=== PATIENT | male | born 1950 | race Caucasian/White ===

== ENCOUNTER 2019-01-11 15:15 | Outpatient (REF) | payer MEDICARE, OTHER, SELFPAY ==
[2019-01-11 20:13] LABS: Cholesterol 267 mg/dL (50-200); HDL Cholesterol 35 mg/dL (40-60); LDL CHOLESTEROL 201 mg/dL (<100); Triglyceride 168 mg/dL (30-150)
[2019-01-11 20:56] LABS: Magnesium 1.8 mg/dL (1.8-2.4)
[2019-01-13 10:56] LABS: Hepatitis C Ab w Rflx HCV PCR Negative (NEGAT)
== END 2019-01-11 15:35 ==
LOC: NCHCN 15:15
PROVIDERS: PCP Family Medicine; Visit Provider Family Medicine
DX: I10 Essential (primary) hypertension (principal); K21.9 Gastro-esophageal reflux disease without esophagitis; Z11.59 Encounter for screening for other viral diseases
CPT/HCPCS: 80061; 83721; 86803; 83735

== ENCOUNTER 2019-01-17 00:19 | Outpatient (CLI) | payer MEDICARE, OTHER, SELFPAY ==
--- NOTE | 2019-01-17 08:41 | DI.US_ITS ---
SYMPTOM/DIAGNOSIS: SCREENING, Z13.9, FORMER SMOKER AORTA ULTRASOUND: No priors for comparison. There is no evidence of an abdominal aortic aneurysm. Maximum diameter of the abdominal aorta is seen proximally and measures 2.8 cm. In the mid abdominal aorta, the measurements are 2.3 by 2.5 cm. The distal abdominal aortic measurements are 2 by 2.1 cm. The left iliac artery measures 1.5 by 1.4 cm. The right iliac artery measures 1.4 by 1.4 cm. IMPRESSION: No evidence of an abdominal aortic aneurysm.
== END 2019-01-17 00:39 ==
PROVIDERS: PCP Family Medicine; Visit Provider Family Medicine
DX: Z13.6 Encounter for screening for cardiovascular disorders (principal); Z87.891 Personal history of nicotine dependence
CPT/HCPCS: 76706

== ENCOUNTER 2019-02-15 17:54 | Outpatient (REF) | payer MEDICARE, OTHER, SELFPAY ==
[2019-02-15 20:01] LABS: Anion Gap 5.8 mmol/L (3-11); BUN 17 mg/dL (7-18); CO2 31.2 mmol/L (21.0-32.0); CREATININE 0.96 mg/dL (0.70-1.30); Calcium 9.5 mg/dL (8.5-10.1); Chloride 104 mmol/L (98-107); Glucose 110 mg/dL (70-100); Potassium 3.8 mmol/L (3.5-5.1); Sodium 141 mmol/L (136-145)
== END 2019-02-15 18:14 ==
LOC: NCHCN 17:54
PROVIDERS: PCP Family Medicine; Visit Provider Family Medicine
DX: I10 Essential (primary) hypertension (principal)
CPT/HCPCS: 80048

== ENCOUNTER 2020-06-04 00:08 | Outpatient (REF) | payer MEDICARE, OTHER, SELFPAY ==
[2020-06-04 18:54] LABS: Anion Gap 10.2 mmol/L (3-11); BUN 14 mg/dL (7-18); CO2 26.8 mmol/L (21.0-32.0); CREATININE 0.91 mg/dL (0.70-1.30); Calcium 9.6 mg/dL (8.5-10.1); Calculated LDL 108 mg/dL (<100); Chloride 104 mmol/L (98-107); Cholesterol 175 mg/dL (<200); Glucose 113 mg/dL (74-106); HDL Cholesterol 36 mg/dL (40-60); Potassium 3.6 mmol/L (3.5-5.1); Sodium 141 mmol/L (136-145); Triglyceride 159 mg/dL (<150)
== END 2020-06-04 00:28 ==
LOC: NCHCN 00:08
PROVIDERS: PCP Family Medicine; Visit Provider Family Medicine
DX: I10 Essential (primary) hypertension (principal); E78.5 Hyperlipidemia, unspecified
CPT/HCPCS: 80048; 80061

== ENCOUNTER 2021-03-13 21:44 | Outpatient (REF) | payer MEDICARE, OTHER, SELFPAY ==
[2021-03-13 18:18] LABS: Abs Immature Grans 0.02 10^3/uL (0.0-0.06); Absolute Basophil Count 0.06 10^3/uL (0.0-0.2); Absolute Eosinophil Count 0.24 10^3/uL (0.0-0.7); Absolute Lymphocyte Count 2.26 10^3/uL (1.2-3.4); Absolute Monocyte Count 0.56 10^3/uL (0.1-0.8); Absolute Neutrophil Count 4.79 10^3/uL (1.2-6.7); Basophils % 0.8; HCT 43.6 % (40.0-50.0); HGB 15.4 g/dL (13.5-17.5); Immature Grans % 0.3; Lymphocytes % 28.5; MCH 31.1 pg (27.0-33.0); MCHC 35.3 % (32.0-36.0); MCV 88.1 fL (80-95); Monocytes % 7.1; Neutrophils % 60.3; Nucleated RBC 0 %; Platelet Count 226 10^3/uL (130-400); RBC 4.95 10^6/uL (4.36-5.78); RDW 12.5 % (11.8-14.1); RDW-SD 40.4 fL; WBC 7.93 10^3/uL (4.4-10.8)
[2021-03-13 18:24] LABS: Anion Gap 7.6 mmol/L (3-11); BUN 14 mg/dL (7-18); CO2 28.4 mmol/L (21.0-32.0); Calcium 8.7 mg/dL (8.5-10.1); Chloride 104 mmol/L (98-107); Glucose 118 mg/dL (74-106); Potassium 3.3 mmol/L (3.5-5.1); Sodium 140 mmol/L (136-145)
[2021-03-13 18:32] LABS: Bilirubin Negative (Negative); Blood Trace-lysed (Negative); Clarity Clear (Clear); Glucose Negative (Negative); Ketones Negative (Negative); Leukocyte Esterase Negative (Negative); Nitrite Negative (Negative); Specific Gravity 1.025 (1.005-1.025); Urobilinogen 0.2 EU/dL (Up TO 0.2); pH 5.5 (5-8)
[2021-03-13 18:43] LABS: Bacteria Negative HPF (Negative); C & S Indicated? No; Casts Negative LPF (Negative); Crystals Negative HPF (Negative); Epithelial Cells Rare HPF (Negative); Mucus Negative (Negative); RBC 0-2 HPF (0-2); WBC 0-2 HPF (0-5)
[2021-03-15 15:03] LABS: COVID-19 RT-PCR UVMMC Result Negative (Negative)
== END 2021-03-13 21:45 | disposition home or self-care (01) ==
LOC: NCHCN 21:44
PROVIDERS: PCP Family Medicine; Visit Provider Nurse Practitioner Family
DX: R19.7 Diarrhea, unspecified (principal); R82.998 Other abnormal findings in urine
CPT/HCPCS: 80048; U0003; 81003; 81015; 85025

== ENCOUNTER 2021-03-18 11:14 | Outpatient (REF) | payer MEDICARE, SELFPAY ==
[2021-03-19 12:55] LABS: C Diff PCR Negative (Negative)
[2021-03-19 21:34] LABS: Campylobacter PCR Negative (Negative); Salmonella PCR Negative (Negative); Shiga Toxin PCR Negative (Negative); Shigella/Enteroinvasive Ecoli Negative (Negative)
== END 2021-03-18 11:15 | disposition home or self-care (01) ==
LOC: NCHCN 11:14
PROVIDERS: PCP Family Medicine; Visit Provider Family Medicine
DX: R19.7 Diarrhea, unspecified (principal)
CPT/HCPCS: 87493; 87505

== ENCOUNTER 2021-03-20 11:44 | Outpatient (REF) | payer MEDICARE, SELFPAY ==
[2021-03-20 13:33] LABS: BUN 20 mg/dL (7-18); CREATININE 1.1 mg/dL (0.70-1.30); Calcium 8.8 mg/dL (8.5-10.1); Chloride 105 mmol/L (98-107); Glucose 111 mg/dL (74-106); Potassium 3.5 mmol/L (3.5-5.1); Sodium 143 mmol/L (136-145)
== END 2021-03-20 11:45 | disposition home or self-care (01) ==
LOC: NCHCN 11:44
PROVIDERS: PCP Family Medicine; Visit Provider Physician Assistant Medical
DX: R19.7 Diarrhea, unspecified (principal)
CPT/HCPCS: 80048

== ENCOUNTER 2021-04-22 20:31 | Outpatient (REF) | payer MEDICARE, SELFPAY ==
[2021-04-24 15:28] LABS: COVID-19 RT-PCR UVMMC Result Negative (Negative)
== END 2021-04-22 20:32 | disposition home or self-care (01) ==
LOC: NCHCN 20:31
PROVIDERS: PCP Family Medicine; Visit Provider Family Medicine
DX: Z20.822 Contact with and (suspected) exposure to COVID-19 (principal); J06.9 Acute upper respiratory infection, unspecified
CPT/HCPCS: U0003

== ENCOUNTER 2022-05-14 09:29 | Outpatient (REF) | payer MEDICARE, OTHER, SELFPAY ==
--- NOTE | 2022-05-14 08:30 | SKI_PTH ---
PATIENT: Eddie Buitrago JR LOC: [facility] U#:[id number] AGE/SX: 71/M ROOM: RE05/14/[address]: Dmitriy Franco MD : 1950 BED: DIS: 05/14/2022 SPEC #: [id number] RECD: 05/14/22 16:53 STATUS: DAVEY REQ #: [id number] DAWSON: 05/14/22 08:[address]: Dmitriy Franco DEPT: Surgical Specimen RECD BY: Ananya Taylor ENTERED: 05/14/22 16:53 SP TYPE: JULES MARCUS DR: Manuel Hardin Tissues: 1 - SKIN BIOPSY(SHAVE/PUNCH) Procedures: SKIN LEVEL 4 Comments: [id number]
== END 2022-05-14 09:30 | disposition home or self-care (01) ==
LOC: LBN 09:29
PROVIDERS: PCP Family Medicine; Visit Provider Otolaryngology
DX: D22.39 Melanocytic nevi of other parts of face (principal)
CPT/HCPCS: 88305

== ENCOUNTER → 2022-05-20 01:25 | Outpatient (CLI) | payer MEDICARE, SELFPAY ==
--- NOTE | 2022-05-20 | DI.RAD_ITS ---
Exam(s) XR HIP RT COMPLETE AP PELVIS EXAM: XR HIP RT COMPLETE AP PELVIS CLINICAL HISTORY: RT HIP PAIN, M25.551. TECHNIQUE: 2D digital imaging was performed of the right hip. Three images were obtained. AP pelvis and lateral right hip views were obtained. COMPARISON: No exams were available for comparison FINDINGS: BONES: No acute fracture is present. No bony destructive lesion is seen. JOINTS: No dislocation present. Marked degenerative changes are seen in the right hip with joint spac e narrowing, subchondral sclerosis and periarticular spurring. Mild degenerative changes are seen in the left hip. Moderate degenerative changes are seen in the lower visualized lumbar spine. SOFT TISSUE: Normal. IMPRESSION: Marked osteoarthritis of the right hip. DATA REPOSITORY: RADIATION DOSE DELIVERED:
== END ==
PROVIDERS: PCP Family Medicine; Visit Provider Family Medicine
DX: M16.11 Unilateral primary osteoarthritis, right hip (principal)
CPT/HCPCS: 73502

== ENCOUNTER 2022-06-10 16:28 | Outpatient (REF) | payer MEDICARE, SELFPAY ==
[2022-06-10 15:01] LABS: Bilirubin Negative (Negative); Blood Trace-intact (Negative); Clarity Turbid (Clear); Glucose Negative (Negative); Ketones Negative (Negative); Leukocyte Esterase Trace (Negative); Nitrite Negative (Negative); Specific Gravity >= 1.030 (1.005-1.025); Urobilinogen 0.2 EU/dL (Up TO 0.2); pH 6.5 (5-8)
[2022-06-10 15:16] LABS: HCT 43.8 % (40.0-50.0); HGB 14.9 g/dL (13.5-17.5); MCH 30.5 pg (27.0-33.0); MCV 90 fL (80-95); MPV 9.6 fL (8.0-11.0); Platelet Count 193 10^3/uL (130-400); RBC 4.89 10^6/uL (4.36-5.78); RDW 13.2 % (11.8-14.1); RDW-SD 43.3 fL
[2022-06-10 15:58] LABS: ALT 38 U/L (16-63); AST 26 U/L (15-37); Albumin 3.8 g/dL (3.4-5.0); Alkaline Phosphatase 104 U/L (46-116); Anion Gap 12.8 mmol/L (3-11); BUN 20 mg/dL (7-18); Bilirubin, Total 0.6 mg/dL (0.2-1.0); CO2 26.2 mmol/L (21.0-32.0); Calcium 8.6 mg/dL (8.5-10.1); Calculated LDL 99 mg/dL (<100); Chloride 104 mmol/L (98-107); Cholesterol 157 mg/dL (<200); Epithelial Cells Negative HPF (Negative); Glucose 117 mg/dL (74-106); HDL Cholesterol 36 mg/dL (40-60); Mucus Negative (Negative); Potassium 4.1 mmol/L (3.5-5.1); RBC 0-2 HPF (0-2); Sodium 143 mmol/L (136-145); Total Protein 7.3 g/dL (6.4-8.2); Triglyceride 112 mg/dL (<150); WBC >50 HPF (0-5)
[2022-06-10 15:59] LABS: C & S Indicated? Yes; Crystals Many Amorphous HPF (Negative)
== END 2022-06-10 16:29 | disposition home or self-care (01) ==
LOC: NCHCN 16:28
PROVIDERS: PCP Family Medicine; Visit Provider Family Medicine
DX: I10 Essential (primary) hypertension (principal); E78.5 Hyperlipidemia, unspecified; R31.21 Asymptomatic microscopic hematuria
CPT/HCPCS: 80053; 80061; 85027; 81003; 81015; 87086

== ENCOUNTER → 2022-09-26 13:58 | Outpatient (CLI) | payer OTHER, SELFPAY ==
--- NOTE | 2022-09-26 | DI.RAD_ITS ---
Exam(s) XR HIP LT COMPLETE AP PELVIS EXAM: XR HIP LT COMPLETE AP PELVIS CLINICAL HISTORY: FALL. TECHNIQUE: 2D digital imaging was performed of the left hip. Two views were obtained. AP pelvis an d lateral left hip views were obtained. COMPARISON: CR XR HIP RT COMPLETE AP PELVIS from 05/20/2022 FINDINGS: BONES: No acute fracture is present. No bony destructive lesion is seen. JOINTS: No dislocation present. There are marked degenerative changes of the right hip. Mild degener ative changes are seen in the left hip. SOFT TISSUE: Normal. IMPRESSION: No acute fracture or dislocation. DATA REPOSITORY: RADIATION DOSE DELIVERED:
--- NOTE | 2022-09-26 | DI.RAD_ITS ---
Exam(s) XR RIBS LT W PA LAT CHEST EXAM: XR RIBS LT W PA LAT CHEST CLINICAL HISTORY: FALL TECHNIQUE: 2D digital imaging was performed. Four images are obtained. COMPARISON: No exams were available for comparison FINDINGS: MEDIASTINUM: Normal. HEART: Normal. PULMONARY VASCULATURE: Normal. LUNGS: Clear. PLEURAL SPACE: No pleural effusion or pneumothorax. BONE:Within normal limits for the patient's age. LEFT RIBS: Normal. OTHER FINDINGS:Normal. IMPRESSION: 1. No acute pulmonary findings. 2. Unremarkable left ribs. DATA REPOSITORY: RADIATION DOSE DELIVERED:
--- NOTE | 2022-09-26 14:41 | DI.VRAD_ITS ---
PROCEDURE INFORMATION: Exam: XR Left Hip Exam date and time: 09/26/2022 2:18 PM Age: 72 years old Clinical indication: Hip pain; Left hip TECHNIQUE: Imaging protocol: Radiologic exam of the Left hip. Views: 2 or 3 views hip with pelvis when performed. COMPARISON: No relevant prior studies available. FINDINGS: Bones/joints: Severe osteoarthritic changes, right worse than left. No acute fracture or dislocation. Soft tissues: Unremarkable. IMPRESSION: No acute findings. Dictated and Authenticated by: Kelly Lord MD. Ordering:BARRERA CARDENAS MD
--- NOTE | 2022-09-26 14:41 | DI.VRAD_ITS ---
PROCEDURE INFORMATION: Exam: XR Left Ribs Exam date and time: 09/26/2022 2:10 PM Age: 72 years old Clinical indication: Injury or trauma; Fall; Work related; Blunt trauma (contusions or hematomas); Rib area, left side TECHNIQUE: Imaging protocol: Radiologic exam of the Left ribs. Views: 2 views. COMPARISON: No relevant prior studies available. FINDINGS: Bones/joints: Normal. Soft tissues: Normal. IMPRESSION: No acute findings. PROCEDURE INFORMATION: Exam: XR Chest Exam date and time: 09/26/2022 2:10 PM Age: 72 years old Clinical indication: Injury or trauma; Fall; Work related; Blunt trauma (contusions or hematomas); Rib area, left side TECHNIQUE: Imaging protocol: Radiologic exam of the chest. Views: 2 views. COMPARISON: No relevant prior studies available. FINDINGS: Lungs: Unremarkable. No consolidation. Pleural spaces: Unremarkable. No pleural effusion. No pneumothorax. Heart/Mediastinum: Unremarkable. No cardiomegaly. Bones/joints: Unremarkable. IMPRESSION: No acute findings. Dictated and Authenticated by: Kelly Lord MD. Ordering:BARRERA CARDENAS MD
== END ==
PROVIDERS: PCP Family Medicine; Visit Provider Nurse Practitioner Family
DX: M16.12 Unilateral primary osteoarthritis, left hip (principal); W19.XXXA Unspecified fall, initial encounter
CPT/HCPCS: 71046; 71100; 73502

== ENCOUNTER 2023-01-21 23:42 | Emergency (ER) | payer OTHER, SELFPAY ==
[2023-01-21 23:51] VITALS: BP 136/99; PULSE 100; RESP 20; TEMP 36.7; O2SAT 99
--- NOTE | 2023-01-22 | DI.RAD_ITS ---
Exam(s) XR FOOT LT COMPLETE EXAM: XR FOOT LT COMPLETE CLINICAL HISTORY: jammed foot into bench, pain 1st/2nd toes, r/o fx. TECHNIQUE: 2D digital imaging was performed. Three views. COMPARISON: No exams were available for comparison FINDINGS: BONES: No acute fracture is present. No bony destructive lesion is seen. Postsurgical changes of the proximal phalanx of the great toe with resection of the proximal portion. Mild postsurgical deformi ty of the 1st metatarsal head. JOINTS: No dislocation present. SOFT TISSUE: Dorsal swelling. IMPRESSION: Postsurgical changes of 1st toe. No acute fracture. DATA REPOSITORY: RADIATION DOSE DELIVERED:
--- NOTE | 2023-01-22 00:47 | DI.VRAD_ITS ---
PROCEDURE INFORMATION: Exam: XR Left Foot Exam date and time: 01/22/2023 12:20 AM Age: 72 years old Clinical indication: Pain; Foot; Left; Prior surgery; Surgery date: 6+ months; Surgery type: Bunion surgery; Additional info: Jammed foot into bench, pain 1st/2nd toes, R/O FX TECHNIQUE: Imaging protocol: Radiologic exam of the left foot. Views: 3 or more views. COMPARISON: CR LEFT KNEE 3 VIEW COMPLETE 08/30/2017 12:36 PM FINDINGS: Bones/joints: Postsurgical change of the 1st proximal phalanx. No acute fracture. Soft tissues: Normal. IMPRESSION: No acute finding. Dictated and Authenticated by: Solomon Cao MD. Ordering:INDIA Falcon MD
--- NOTE | 2023-01-22 02:45 | ED.GENADUL_ITS ---
Discharge Plan Disposition Patient Disposition: Home Condition: Stable Discharge Details Clinical Impression: Contusion of toe of left foot Primary Care Provider: Zeeshan Lowery ED Provider: Terrie Mims Home Meds and New Rx's Prescriptions: Continued amlodipine 5 mg tablet 5 mg PO DAILY atorvastatin 40 mg tablet 40 mg PO DAILY lisinopril-hydrochlorothiazide 20-12.5 mg tablet 1 tab PO DAILY Discharge Instructions Instructions: Foot Contusion (ED) Additional Instructions: Your x-ray today is reassuring and shows no evidence of acute fracture. Rest, ice, and elevate the affected area as much as possible. Follow-up with podiatry for reevaluation as needed. Return immediately to the emergency department if you develop any worsening or new concerning symptoms. Referrals: Laura Kamara DPM [[facility] STAFF PHYSICIAN] - Discharge Data Discharge Date/Time-TO BE ENTERED AT DEPARTURE: 01/22/23 02:53 Discharge Physician: Terrie Mims Medical Decision Making 72-year-old male presents with left first and second toe pain after jammed his foot into a bench at work. 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 Patient disposition delayed due to high volume and acuity in the department. His left foot appears normal to inspection with some pain with range of motion and tenderness in his left first and second toe. There is no deformity or evidence of cellulitis. Left foot x-ray negative for acute findings. Patient advised on importance of rest, ice and elevation. He was given podiatry follow- up information if needed. Usual and customary return precautions given prior to discharge. Medical Records Medical records reviewed: Yes I reviewed the patient's medical records. Imaging Data Radiologic Study: Radiologist's impression: XR Left Foot Exam date and time: 01/22/2023 12:20 AM Age: 72 years old Clinical indication: Pain; Foot; Left; Prior surgery; Surgery date: 6+ months; Surgery type: Bunion surgery; Additional info: Jammed foot into bench, pain 1st/2nd toes, R/O FX TECHNIQUE: Imaging protocol: Radiologic exam of the left foot. Views: 3 or more views. COMPARISON: CR LEFT KNEE 3 VIEW COMPLETE 08/30/2017 12:36 PM FINDINGS: Bones/joints: Postsurgical change of the 1st proximal phalanx. No acute fracture. Soft tissues: Normal. IMPRESSION: No acute finding. HPI General Mode of arrival: ambulatory . Date/Time Provider Initiated Documentation: 01/22/23 00:05 . Limitations to Documentation: no limitations . Information obtained by: patient . 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 Patient has not taken anything for pain. Patient denies any ankle pain. He denies any other injuries. Related Data Home Medications Medication Instructions Recorded Confirmed atorvastatin 40 mg tablet 40 mg PO DAILY 11/03/21 01/22/23 lisinopril 20 1 tab PO DAILY 11/03/21 01/22/23 mg-hydrochlorothiazide 12.5 mg tablet amlodipine 5 mg tablet 5 mg PO DAILY 05/14/22 01/22/23 Allergies Allergy/AdvReac Type Severity Reaction Status Date / Time Penicillins Allergy Unknown Verified 01/22/23 00:11 General Stated Complaint: Orthopedic BETY: 4 Review of Systems All systems reviewed & are unremarkable except as noted in HPI and below Constitutional Constitutional: Reports as per HPI, Denies chills and Denies fever(s) Eyes Eyes: Denies blurry vision ENT Ears, Nose, Mouth, and Throat: Denies dizziness, Denies sore throat and Denies throat swelling Cardiovascular Cardiovascular: Denies chest pain and Denies dyspnea Respiratory Respiratory: Denies cough and Denies dyspnea Gastrointestinal Gastrointestinal: Denies abdominal pain, Denies diarrhea and Denies vomiting Genitourinary Genitourinary: Denies hematuria and Denies dysuria Musculoskeletal Musculoskeletal: Denies back pain and Denies numbness Comments: Left first and second toe pain. Integumentary/Breasts Skin/Breast: Denies lesions and Denies rash Neurologic Neurologic: Denies dizziness, Denies localized weakness and Denies numbness Allergic/Immunologic Allergic/Immunologic: Denies throat swelling [facility] All Active Problems (Updated 01/22/23 @ 02:45 by Terrie Mims DO) Contusion of toe of left foot (Acute) Dry throat (Acute) Cough (Acute) Skin lesion of face (Acute) Bilateral impacted cerumen (Acute) Sensorineural hearing loss, bilateral (Acute 05/10/14) Impacted cerumen (Acute 05/10/14) Hematoma of pinna (Acute 12/07/13) Conductive hearing loss, external ear (Acute 05/10/14) Medical History Compound nevus of cheek COVID-19 GERD (gastroesophageal reflux disease) Hypercholesterolemia Hypertension Osteoarthritis Surgical History H/O knee surgery S/P repair of hydrocele Social History Smoking/Tobacco Use Status: Never Smoking risk assessment performed?: Yes What is your relationship status?: Panel score (0-1 are the most socially isolated patients): 0 Do you feel safe at home: Yes Do you feel safe in your relationship?: Yes Exam Const General: cooperative, healthy appearing and no acute distress HENMT Head: normal to inspection Mouth: oral mucosae normal Eyes General: appearance normal, both eyes and all related structures Neck Neck: normal visual inspection Resp Effort & Inspection: normal respiratory effort and able to speak in complete sentences Cardio Rate: regular rate Skin General skin exam: no rashes or lesions noted Neuro General: patient alert, patient awake and patient oriented x3 Motor: muscle tone normal throughout Extrem Other: Left first and second toe without ecchymosis, erythema or deformity. He has some pain with range of motion and tenderness of the left first and second toe. Remainder of foot nontender to palpation. Left ankle appears normal to inspection without tenderness. Left DP and PT pulses intact. Psych Appearance: grossly normal Affect: normal affect Course Vital Signs Vital signs: Vital Signs Temperature 98.1 F 01/21/23 23:51 Pulse 100 H 01/21/23 23:51 Respiratory Rate 20 01/21/23 23:51 Blood Pressure 136/99 H 01/21/23 23:51 Pulse Oximetry 99 01/21/23 23:51 Temperature 98.1 F 01/21/23 23:51 Temperature Source Temporal Artery Scan 01/21/23 23:51 Pulse 100 H 01/21/23 23:51 Respiratory Rate 20 01/21/23 23:51 Respiratory Effort Normal 01/22/23 00:04 Blood Pressure 136/99 H 01/21/23 23:51 Blood Pressure Position Sitting 01/21/23 23:51 Pulse Oximetry 99 01/21/23 23:51 Oxygen Delivery Method Room Air 01/21/23 23:51 Oxygen Flow Rate 0 01/21/23 23:51 Pain Level 4 01/22/23 00:04
[2023-01-22 02:51] VITALS: BP 139/81; PULSE 78; RESP 18; O2SAT 95
== END 2023-01-22 02:53 | disposition home or self-care (01) ==
PROVIDERS: Emergency Provider Physician Assistant; PCP Family Medicine
DX: S90.32XA Contusion of left foot, initial encounter (principal); W23.0XXA Caught, crushed, jammed, or pinched between moving objects, initial encounter; Y99.0 Civilian activity done for income or pay
CPT/HCPCS: 99283; 73630

== ENCOUNTER 2023-06-28 12:03 | Outpatient (REF) | payer MEDICARE, SELFPAY ==
[2023-06-28 15:29] LABS: HCT 47.2 % (40.0-50.0); HGB 16.7 g/dL (13.5-17.5); MCH 30.8 pg (27.0-33.0); MCHC 35.4 % (32.0-36.0); MCV 87 fL (80-95); MPV 9.6 fL (8.0-11.0); Platelet Count 154 10^3/uL (130-400); RBC 5.43 10^6/uL (4.36-5.78); RDW 13.1 % (11.8-14.1); RDW-SD 41.5 fL; WBC 4.46 10^3/uL (4.4-10.8)
[2023-06-29 09:54] LABS: Lyme Ab w Rflx to Lyme Confirm Negative (Negative)
[2023-07-01 14:18] LABS: Anaplasma phagocytophilum Negative (Negative); B. miyamotoi PCR Negative (Negative); Babesia divergens/MO-1 Negative (Negative); Babesia duncani Negative (Negative); Babesia microti Negative (Negative); Ehrlichia chaffeensis Negative (Negative); Ehrlichia ewingii/canis Negative (Negative); Ehrlichia muris eauclairensis Negative (Negative)
== END 2023-06-28 12:04 | disposition home or self-care (01) ==
LOC: NCHCN 12:03
PROVIDERS: PCP Family Medicine; Visit Provider Family Medicine
DX: R50.9 Fever, unspecified (principal); R82.998 Other abnormal findings in urine; Z11.8 Encounter for screening for other infectious and parasitic diseases
CPT/HCPCS: 85027; 87798; 86618; 87086

== ENCOUNTER 2023-07-23 13:48 | Outpatient (REF) | payer MEDICARE, SELFPAY ==
[2023-07-23 15:08] LABS: Source Nasal/Nares
[2023-07-23 16:34] LABS: COVID-19 PCR POSITIVE (Negative)
== END 2023-07-23 13:49 | disposition home or self-care (01) ==
LOC: LBN 13:48
PROVIDERS: PCP Family Medicine; Visit Provider Physician Assistant Medical
DX: B34.9 Viral infection, unspecified (principal); Z20.822 Contact with and (suspected) exposure to COVID-19
CPT/HCPCS: 87635; 87070

== ENCOUNTER 2023-08-05 13:56 | Outpatient (CLI) | payer MEDICARE, SELFPAY ==
--- NOTE | 2023-08-05 08:44 | DI.RAD_ITS ---
Exam(s) XR HIP RT COMPLETE AP PELVIS EXAM: XR HIP RT COMPLETE AP PELVIS CLINICAL HISTORY: RIGHT HIP PAIN. TECHNIQUE: 2D digital imaging was performed of the right hip. Two images were obtained. AP pelvis a nd lateral right hip views were obtained. COMPARISON: CR XR HIP RT COMPLETE AP PELVIS from 05/20/2022 FINDINGS: BONES: No acute fracture is present. No bony destructive lesion is seen. JOINTS: No dislocation present. There are marked degenerative changes of the right hip with joint spa ce narrowing and osteophytes. Subchondral sclerosis and cysts are also noted. Joint space narrowing is also seen in the left hip. SOFT TISSUE: Normal. IMPRESSION: Marked degenerative changes of the right hip. DATA REPOSITORY: RADIATION DOSE DELIVERED:
== END 2023-08-05 13:57 | disposition home or self-care (01) ==
LOC: DIORS 13:56
PROVIDERS: PCP Family Medicine; Referring Provider Physical Therapist; Visit Provider Student in an Organized Health Care Education/Training Program
DX: M16.11 Unilateral primary osteoarthritis, right hip (principal); M16.12 Unilateral primary osteoarthritis, left hip
CPT/HCPCS: 99214; 73502

== ENCOUNTER 2023-09-09 16:22 | Outpatient (REF) | payer MEDICARE, SELFPAY ==
[2023-09-09 15:33] LABS: HCT 44.9 % (40.0-50.0); MCH 29.9 pg (27.0-33.0); MCHC 33.4 % (32.0-36.0); MCV 90 fL (80-95); MPV 9.4 fL (8.0-11.0); Platelet Count 227 10^3/uL (130-400); RBC 5.01 10^6/uL (4.36-5.78); RDW 13.3 % (11.8-14.1); RDW-SD 43.7 fL; WBC 6.74 10^3/uL (4.4-10.8)
[2023-09-09 15:55] LABS: ALT 37 U/L (16-63); AST 29 U/L (15-37); Alkaline Phosphatase 104 U/L (46-116); Anion Gap 9.7 mmol/L (3-11); BUN 14 mg/dL (7-18); Bilirubin, Total 0.4 mg/dL (0.2-1.0); CO2 26.3 mmol/L (21.0-32.0); CREATININE 0.9 mg/dL (0.70-1.30); Calcium 9.6 mg/dL (8.5-10.1); Chloride 103 mmol/L (98-107); Estimated GFR 90.18 (mL/min/1.73m2); Glucose 129 mg/dL (74-106); Potassium 3.9 mmol/L (3.5-5.1); Sodium 139 mmol/L (136-145); Total Protein 7.7 g/dL (6.4-8.2)
== END 2023-09-09 16:23 | disposition home or self-care (01) ==
LOC: NCHCN 16:22
PROVIDERS: PCP Family Medicine; Visit Provider Family Medicine
DX: I10 Essential (primary) hypertension (principal); M16.11 Unilateral primary osteoarthritis, right hip
CPT/HCPCS: 80053; 85027

== ENCOUNTER 2023-09-16 04:48 | Outpatient (CLI) | payer MEDICARE, SELFPAY ==
[2023-09-16 10:56] LABS: HCT 44.9 % (40.0-50.0); HGB 15.6 g/dL (13.5-17.5); MCH 30.9 pg (27.0-33.0); MCHC 34.7 % (32.0-36.0); MCV 89 fL (80-95); MPV 9.1 fL (8.0-11.0); Platelet Count 200 10^3/uL (130-400); RBC 5.05 10^6/uL (4.36-5.78); RDW 13.1 % (11.8-14.1); RDW-SD 42.6 fL; WBC 6.62 10^3/uL (4.4-10.8)
[2023-09-16 11:20] LABS: Anion Gap 8.7 mmol/L (3-11); BUN 14 mg/dL (7-18); CO2 29.3 mmol/L (21.0-32.0); Calcium 9.4 mg/dL (8.5-10.1); Chloride 102 mmol/L (98-107); Estimated GFR 79.47 (mL/min/1.73m2); Glucose 125 mg/dL (74-106); Potassium 3.8 mmol/L (3.5-5.1); Sodium 140 mmol/L (136-145)
== END 2023-09-16 04:49 | disposition home or self-care (01) ==
LOC: LBO 04:48
PROVIDERS: PCP Family Medicine; Visit Provider Student in an Organized Health Care Education/Training Program
DX: M16.11 Unilateral primary osteoarthritis, right hip (principal); Z01.818 Encounter for other preprocedural examination
CPT/HCPCS: 36415; 80048; 85027

== ENCOUNTER 2023-09-28 08:20 | Day surgery (SDC) | payer MEDICARE, SELFPAY ==
[2023-09-28] VITALS (9 sets, daily range): BP systolic 105–154; BP diastolic 67–95; PULSE 66–98; RESP 15–21; TEMP 36.1–36.6; O2SAT 92–99; BMI 29.3
[2023-09-28] MEDS: Celecoxib 200 MG CAP 400 MG PO (09:05)
[2023-09-28] MEDS: Acetaminophen 500 MG TAB 1000 MG PO (09:05)
--- NOTE | 2023-09-28 09:43 | ANES.PREOP_ITS ---
General Info Date of Service Date Performed: 09/28/23 Height: 5 ft 5 in Weight: 80.1 kg Body Mass Index (BMI): 29.3 Surgical Procedure: Operation Date: 09/28/23 11:35 Proposed Procedure Side Surgeon p Hip Total Hip Anterior, ACTIS High Right Kenyon Hall MD Meds Allergies and Home Medications Allergies Allergy/AdvReac Type Severity Reaction Status Date / Time Penicillins Allergy Unknown Verified 09/28/23 08:52 Home Medication Medication Instructions Recorded atorvastatin 40 mg tablet 40 mg PO DAILY 11/03/21 lisinopril 20 1 tab PO DAILY 11/03/21 mg-hydrochlorothiazide 12.5 mg tablet amlodipine 5 mg tablet 5 mg PO DAILY 05/14/22 Current Visit Medications: Current Medications Generic Name Dose Route Start Last Admin Trade Name Freq PRN Reason Stop Dose Admin Acetaminophen 1,000 mg 09/28/23 06:00 09/28/23 09:05 Acetaminophen 500 Mg Tab PO 09/28/23 16:00 1,000 mg PREOP JUAN Administration Celecoxib 400 mg 09/28/23 06:00 09/28/23 09:05 Celecoxib 200 Mg Cap PO 09/28/23 16:00 400 mg PREOP JUAN Administration Tranexamic Acid 1,000 mg/ 60 mls @ 360 mls/hr 09/28/23 06:00 Sodium Chloride IV 09/28/23 16:00 PREOP JUAN Ringer's Solution 1,000 mls @ 80 mls/hr 09/28/23 06:00 09/28/23 09:29 IV 10/27/23 23:59 80 mls/hr INFUSION JUAN Administration Cefazolin Sodium/Dextrose 2 gm in 50 mls @ 100 mls/hr 09/28/23 06:00 Ancef Duplex IVPB 10/27/23 23:59 PREOP JUAN IV Miscellaneous Supplies 1 each 09/28/23 06:00 Iv Access IV 10/27/23 23:59 DIRECTED JUAN Sodium Chloride 0 ml 09/28/23 06:00 Normal Saline Flush 10 Ml Syr IV 10/27/23 23:59 PRN PRN Sodium Chloride 0 ml 09/28/23 06:00 Normal Saline 10 Ml Vial IJ 10/27/23 23:59 DIRECTED PRN Sterile Water 0 ml 09/28/23 06:00 Water,Injection,Sterile 10 Ml Vial IJ 10/27/23 23:59 DIRECTED PRN PFSH Active Problems Active Problems: Problem Status Onset Code Degenerative joint disease of left hip M16.12 Degenerative joint disease of right hip M16.11 Dry throat J39.2 Skin lesion of face L98.9 Bilateral impacted cerumen H61.23 Sensorineural hearing loss, bilateral 05/10/14 H90.3 Impacted cerumen 05/10/14 H61.20 Hematoma of pinna 12/07/13 S00.439A Conductive hearing loss, external ear 05/10/14 H90.2 Medical History Medical History Compound nevus of cheek COVID-19 GERD (gastroesophageal reflux disease) Osteoarthritis Hypercholesterolemia Hypertension Surgical History Surgical History History of bunionectomy of right great toe History of bunionectomy of left great toe S/P repair of hydrocele H/O knee surgery Left knee - chainsaw injury Tobacco Smoking/Tobacco Use Status: Former Tobacco Use Alcohol Alcohol Intake: current Alcohol intake frequency: holidays/special occasions only Substance Use Substance use: Never Substance use type: does not use Vital Signs and Lab Results Vital Signs Most Recent Vital Signs in EMR: Most Recent Vital Signs Temp Pulse Resp BP Pulse Ox 36.6 C 98 H 20 154/95 H 96 09/28/23 08:43 09/28/23 08:43 09/28/23 08:43 09/28/23 08:43 09/28/23 08:43 Lab Results Blood Type / Crossmatch: No Data to Display Complete Blood Count: White Blood Count 6.62 10^3/uL (4.4-10.8) 09/16/23 10:45 Red Blood Count 5.05 10^6/uL (4.36-5.78) 09/16/23 10:45 Hemoglobin 15.6 g/dL (13.5-17.5) 09/16/23 10:45 Hematocrit 44.9 % (40.0-50.0) 09/16/23 10:45 Platelet Count 200 10^3/uL (130-400) 09/16/23 10:45 Complete Metabolic Panel: Sodium 140 mmol/L (136-145) 09/16/23 10:45 Potassium 3.8 mmol/L (3.5-5.1) 09/16/23 10:45 Chloride 102 mmol/L (98-107) 09/16/23 10:45 Carbon Dioxide 29.3 mmol/L (21.0-32.0) 09/16/23 10:45 BUN 14 mg/dL (7-18) 09/16/23 10:45 Creatinine 1.0 mg/dL (0.70-1.30) 09/16/23 10:45 Est GFR (CKD-EPI 2020) 79.47 (mL/min/1.73m2) 09/16/23 10:45 Calcium 9.4 mg/dL (8.5-10.1) 09/16/23 10:45 Albumin 4.0 g/dL (3.4-5.0) 09/09/23 10:55 Glucose 125 mg/dL (74-106) H 09/16/23 10:45 Liver Function Panel: Alanine Aminotransferase (ALT/SGPT) 37 U/L (16-63) 09/09/23 10: 55 Aspartate Amino Transf (AST/SGOT) 29 U/L (15-37) 09/09/23 10:55 Coagulation Panel: No Data to Display Cardiac Panel: No Data to Display Arterial Blood Gas: No Data to Display Venous Blood Gas: No Data to Display Pancreas Panel: No Data to Display Thyroid Panel: No Data to Display Infectious Disease: No Data to Display Blood Cultures: No Data to Display Toxicology Panel: No Data to Display Anesthesia Assessment and Plan Anesthesia History Personal History: No History of Anesthesia Complications Family History: No Family History of Anesthesia Complications Exercise Tolerance Exercise Tolerance: Metabolic Equivalents>4 Cardiac & Pulmonary Exam Cardiac Exam: Normal S1/S2 Heart Sounds Pulmonary Exam: Clear Bilateral Breath Sounds Implantable Cardiac Device Does patient have a Pacemaker or an ICD?: No Airway Exam Known Difficult Airway: No Mallampati Class: 4 Mouth Opening: Normal (> 3cm) Thyromental Distance: Greater than 3 cm Neck Range of Motion: Limited ROM Neck Circumference: Normal Teeth Condition: Normal Dentition Airway Comments: chips on the fronts. ASA Classification ASA Score: ASA 2 Emergency Case?: No NPO Status NPO Status: NPO Clears >2 hours, Solids >8 hours Anesthesia Plan Resuscitation Status: Full Code Anesthesia Technique: General Anesthesia Airway Planned: Endotracheal Tube Monitors Used: Standard Monitors Preoperative Comments:: 73 yo male for JERRI. Sig PMHx: HTN (3 agents, BP 140/80ish most appointments), occ GERD, former smoker, occ EtOH. Discussed risks and benefits of spinal vs GA but that the decision is ultimately his. He would like GA.
[2023-09-28] MEDS: Lactated Ringers 1,000 ML 80 ML IV (09:50)
--- NOTE | 2023-09-28 10:19 | W.PM.DS.N ---
Date of service: 09/28/23 Time of Service: 10:22 DS: Diagnosis Discharge Diagnosis (1) Degenerative joint disease of right hip: Status: Resolved Discharge Plan Disposition Patient Disposition: Home Condition: Good Discharge Details Reason For Visit: Right hip DJD Attending Provider: Kenyon Hall Primary Care Provider: Zeeshan Lowery Home Meds and New Rx's Prescriptions: New acetaminophen 500 mg tablet 1,000 mg PO Q8H PRN Qty: 90 0RF Rx Instructions: Take two tablets up to every 8 hours as needed for pain aspirin 81 mg tablet,delayed release (DR/EC) 81 mg PO BID 30 Days Qty: 60 0RF celecoxib [Celebrex] 200 mg capsule 200 mg PO BID PRNQty: 60 0RF Rx Instructions: Take one tablet twice daily for pain and inflammation docusate sodium [Colace] 100 mg capsule 100 mg PO BID Qty: 30 0RF pantoprazole 40 mg tablet,delayed release (DR/EC) 40 mg PO DAILY 14 Days Qty: 14 0RF dexamethasone 4 mg tablet 4 mg PO DAILY Qty: 2 0RF Rx Instructions: Take one tablet once daily for two days oxycodone 5 mg tablet 5 mg PO Q6H PRNQty: 12 0RF Rx Instructions: Take one tablet up to every 6 hours as needed for severe postoperative pain Continued amlodipine 5 mg tablet 5 mg PO DAILY atorvastatin 40 mg tablet 40 mg PO DAILY lisinopril-hydrochlorothiazide 20-12.5 mg tablet 1 tab PO DAILY Discharge Instructions Additional Instructions: Total Hip Discharge Instructions Activity: The most important activity is to walk. You should try to take short walks a few times a day. You have no restrictions on movement or positioning, but do not try to force what you do. You will find some stiffness and weakness with hip flexion (lifting your knee). Do not try to strengthen this too early, continue to practice walking and stairs and this will come. - Outpatient physical therapy can be helpful to help return you to a normal gait and improve your flexibility and strength. This can start around 2 weeks. For some patients, it?s not necessary. Usually this is determined at the time of discharge or at the first post-operative visit. - You should wear the KANE hose on both legs for 2 weeks. Dressing: Keep the surgical dressing in place for at least one week. After the first week it may be removed and replace with light gauze and tape or nothing. It may get wet after 3 days but avoid soaking the dressing. If it gets wet, just lightly pat dry. It is important to always keep some gauze between skin folds, especially when you are sitting. Spend some time with the wound exposed when you are lying flat as the incision does wrinkle onto itself. Medications: - You should take Tylenol and an anti-inflammatory Celebrex as your primary pain control medications. If the Celebrex is too expensive or not covered, please call the office for another alternative (Advil/Ibuprofen or Naproxen/Aleve). - You have been prescribed a stronger pain medication Oxycodone for breakthrough pain, take as needed as prescribed. - You have also been prescribed a stomach acid reduction agent Pantoprozole to help reduce stomach acid and reflux. - You have also been prescribed Decadron to help with post-operative nausea and pain. You will take this for two days starting tomorrow. - You will be taking Aspirin 81mg twice a day for DVT prevention unless instructed otherwise. - If you have constipation you should take Colace (which has been prescribed) or Miralax (which is available [id number]). It takes most people 3-4 days to have a bowel movement. Follow-up: 2 weeks If you have any acute concerns or questions, please do not hesitate to contact the office at [phone]. You may contact Dr. Hall with any questions after hours through the hospital at [phone] or on his cell phone at [phone]. Stand Alone Forms: Anesthesia Discharge InstLeticia Ochoa (Miguel) Referrals: Kenyon Hall MD [ [facility]FF PHYSICIAN] - 10/11/23 9:45 am Equipment/Supplies: Walker Activity:: Elevate Remove Dressings/Wound Care:: Do Not Remove Shower/Bathe:: 72 hours and Cover Diet:: As Tolerated Discharge Orders Discharge Orders: Discharge Order (Routine); Ordered 09/28/23 Ordered By: Marcelle Delcid Discharge Data Discharge Date/Time-TO BE ENTERED AT DEPARTURE: 09/28/23 16:00 Discharge Comment: pt d/c from [facility] DS: Summary Time Spent with Patient providing and/or coordinating discharge services: Less than 30 minutes Status at Discharge Functional status at discharge: uses cane/walker Overall status at discharge: patient is progressing back to baseline Mental Status: mental status grossly normal Speech and Movement: speech and movement normal Mood: congruent mood Affect: normal affect Exam Psych Mental Status: mental status grossly normal Speech and Movement: speech and movement normal Mood: congruent mood Affect: normal affect DS: Data Vitals/I&O Vitals and I&O: Vital Signs Temperature 97.9 F 09/28/23 08:43 Pulse 98 H 09/28/23 08:43 Pulse Rhythm Regular 09/28/23 08:43 Respiratory Rate 20 09/28/23 08:43 Respiratory Depth Normal 09/28/23 08:43 Blood Pressure 154/95 H 09/28/23 08:43 Pulse Oximetry 96 09/28/23 08:43 Oxygen Delivery Method Room Air 09/28/23 08:43 Oxygen Flow Rate 0 09/28/23 08:43 Intake & Output 09/27/23 09/27/23 09/28/23 11:59 23:59 11:59 Weight 180 lb 0.013 oz 176 lb 9.444 oz PFSH All Active Problems (Updated 09/29/23 @ 08:43 by Mu Chaparro RN) History of total right hip replacement (Acute 09/28/23) 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) Dry throat (Acute) Skin lesion of face (Acute) Bilateral impacted cerumen (Acute) Sensorineural hearing loss, bilateral (Acute 05/10/14) Impacted cerumen (Acute 05/10/14) Hematoma of pinna (Acute 12/07/13) Conductive hearing loss, external ear (Acute 05/10/14) Medical History (Updated 09/29/23 @ 08:43 by Mu Chaparro RN) Compound nevus of cheek COVID-19 GERD (gastroesophageal reflux disease) Osteoarthritis Hypercholesterolemia Hypertension Surgical History (Updated 09/29/23 @ 08:43 by Mu Chaparro RN) History of bunionectomy of right great toe History of bunionectomy of left great toe S/P repair of hydrocele H/O knee surgery Left knee - chainsaw injury Social History Smoking/Tobacco Use Status: Former Tobacco Use Quit Date: 11/29/74 Smoking risk assessment performed?: Yes Alcohol Intake: current Alcohol Intake frequency: holidays/special occasions only Drug use: Never Substance use type: does not use Housing: house What is your relationship status?: Panel score (0-1 are the most socially isolated patients): 0 Do you feel safe at home: Yes (lives alone) Do you feel safe in your relationship?: Yes Time Spent with Patient Time Spent with Patient: <45 minutes Time was spent: obtaining and/or reviewing separately otained hiistory, ordering medications,tests, procedures and referring, communicating with other health long term care social worker
[2023-09-28] MEDS: ceFAZolin 2 GM/50 ML BAG IVPB (10:37)
--- NOTE | 2023-09-28 12:01 | DI.RAD_ITS ---
Exam(s) XR HIP RT IN OR EXAM: XR HIP RT IN OR CLINICAL HISTORY: Degenerative joint disease of right hip. TECHNIQUE: 2D and realtime digital imaging was performed. COMPARISON: CR XR HIP RT COMPLETE AP PELVIS from 08/05/2023 FINDINGS: A hard copy image shows placement of a right hip prosthesis. The alignment appears satisfactory. Please see procedure note for details. Fluoro time: 28.6seconds RADIATION DOSE DELIVERED: Ubaldor=3.91 mGy
--- NOTE | 2023-09-28 12:13 | ROE_ITS ---
Date of service: 09/28/23 Time of Service: 11:00 Operative Note Operative Note DATE OF PROCEDURE: 09/28/23 PRE-OP DIAGNOSIS: Right Hip Osteoarthritis POST-OP DIAGNOSIS: same PROCEDURE: Right Anterior Total Hip Arthroplasty with Intraoperative Navigation SURGEON: Kenyon Hall ASSEMBLY DETAILER: Marcelle Delcid ANESTHESIA TYPE: Spinal Refer to Anesthesia Record ESTIMATED BLOOD LOSS: 200 PATHOLOGY: none sent TOURNIQUET TIME: 0 COMPLICATIONS: None Patient was transported to: PACU Patient's condition: stable Implants: 1. Depuy Villard Acetabular Component, 52mm 2. Depuy Acetabular Liner, [id number] 3. Depuy Actis High Offset Collared Femoral Stem, Size 4 4. Depuy Altrx Ceramic Femoral Head, Size 36+5mm Indications: I have seen Eddie in clinic for symptoms of hip arthritis, confirmed with radiographic findings. Eddie has exhausted nonoperative methods and was having significant limitations in daily function and desired better function and less pain. I discussed the technical details of a hip replacement. I explained the risks of the procedure to include, but not limited to, bleeding, infection, pain, stiffness, fracture, damage to nerves and vessels, damage to muscles and tendons, loosening, instability, leg length inequality, need for repeat procedure, blood clot and cardiopulmonary demise. Despite these risks, he elected to proceed. Findings: There was significant signs of arthritis throughout the hip. Procedure Description: Eddie was greeted in the preoperative holding area where the correct side was identified and marked. The consent was reviewed with the patient and signed. The history and physical was updated. All questions were answered. He was taken back to the operating room. A general anesthetic was then adminis tered. The feet were wrapped with cast padding and Coban and then placed into the boot liners and then into the boots. Care was taken to protect the skin and make sure the heels were fully down and the boots were stable. The patient was then positioned onto the HANA table. Both legs were held in a neutral position. SCDs were applied. The patient was then slid down onto a peroneal post. Prophylactic antibiotics in the form of Cefazolin were administered. 1g of Tranxemic Acid was given intravenously within 30 minutes of incision. The right leg was then prepped with Chloraprep and draped in a standard fashion. A second prep with Chloraprep was performed prior to placement of a shower-curtain type drape with Iodine impregnated skin protection. A timeout to confirm correct identity, side and site, procedure, allergies, anesthesia, and medical concerns was performed. An obliquely oriented incision was made starting lateral to the ASIS and running distal over the Tensor Fascia Nguyen (TFL) muscle belly toward the fibular head, approximately 10cm. The skin and soft tissue was dissected sharply, through Antoni?s fascia, and to the fascia of the TFL. With the fascia and superior border of the IT band identified, the fascia was incised with a new knife just above any perforators from the IT band. The TFL muscle belly was bluntly dissected away from the fascia and moved laterally. The fat between TFL and rectus was identified to ensure the dissection was not within the TFL. Blunt dissection created space between abductors and the capsule and retractor was placed over the lateral femoral neck. The fibers of the rectus femoris tendon were identified and these were freed from the anterior capsule. A second cobra retractor was placed around the medial femoral neck. The TFL was further retracted laterally to show the deep fascia. Careful dissection through this layer identified three main crossing vessels of the lateral femoral circumflex. These were cauterized in multiple locations and then cut without any noticeable bleeding. The TFL was further released bluntly from the deep fascia to expose anterior hip capsule and fat The Gregorio orthopaedic retractor was then placed beneath the TFL and against sartorius and medial soft tissues to protect and retract the soft tissues. A T-capsulotomy was then performed starting at the superior lateral acetabulum and moving distally to the intertrochanteric ridge. These capsular flaps were tagged with a No. 1 Ethibond and elevated from within. The capsular flaps were released to the shoulder of the lateral neck and to the lesser trochanter to give excellent visualization of the proximal femur. A neck osteotomy was performed using an oscillating saw based on preoperative templates. This cut started in the shoulder and of the lateral neck and exited medially. The saw was at all times directed medially to avoid injury to the greater trochanter. Gross traction was applied to the leg and the osteotomy opened. The femoral head was removed with a corkscrew, making sure to protect the TFL on its exit. Traction was released after head removal. This was measured on the back table to determine the starting reamer size. Portions of the rectus obscuring visualization were minimally elevated off the superior acetabulum. An anterior retractor was placed over the anterior wall between capsule and labrum and attached to the Gripper retraction system. The femur was rotated to 90 degrees and medial capsule was fully released until the lesser trochanter was palpable and visible; the femur was returned to 30 degrees. A posterior retractor was placed similarly between capsule and labrum. This provided excellent visualization. The contents of the cotyloid fossa were removed with electrocautery and the labrum was removed with a knife. There was a notable floor osteophyte. There was significant chondromalacia of the superior acetabulum. Acetabular reaming began with a 48mm reamer. This first reaming was directed anterior to posterior and medial to get down to the true floor. This was inspected and reamed until the true floor was reached. The anterior retractor was then released and entry and exit was provided by traction on the capsular flaps. I then reamed sequentially up to a 52mm reamer where good fit was obtained. The larger reamers were oriented based on anatomical reference of the anterior and lateral tesfaye to ensure proper abduction and anteversion. Positioning and size was confirmed with the fluoroscopy. A 52mm Depuy Villard acetabular component was selected. The acetabulum was reamed around the periphery with the selected acetabular size to prevent a rim fit. The deep tissues were irrigated. The acetabular component was then impacted in a position of about 40-45 degrees of abduction and 15-20 degrees of anteversion, using the patient?s anatomy as the ultimate landmark. Fluoroscopy was used to confirm this. There was excellent electric system operator of the acetabular component and the inserting handle was removed. The acetabular liner, Depuy [id number] polyethylene liner, was inserted and lined up with the tines of the acetabular component. There was no soft tissue interposition. The liner was then impacted into position and confirmed to be well-seated. A portion of the buck-articular cocktail was then injected around the acetabulum into the capsule and periosteum. This cocktail consisted of 123mg of Ropivacaine, 0.25mg of Epinephrine, 0.04mg of Clonidine, and 15mg of Ketorolac, diluted to 50cc. The leg was rotated to 120 degrees. Any remaining medial capsule was released until the lesser trochanter was easily palpable. A retractor was placed medially. The lateral capsule was further released into the shoulder to allow access to the greater trochanter. A Bradshaw retractor was placed over the greater trochanter which allowed the trochanter to flip in front of the capsule for excellent exposure. The leg was brought down into maximal extension and 20 degrees of adduction while ensuring there was no impingement on the acetabulum. Any remnant capsule within the trochanter was released. Piriformis and obturator externis were identified and protected. There was excellent access to the proximal femur. The lateral neck remnant was removed with a rongeur. A blunt canal probe was used to identify the canal and trajectory for later broaching. A box osteotome initiated the broach course. A small curved rasp and a curved curette were used to work laterally. Broaching then began with a starter Actis broach. This was inserted manually around the trochanter and into the canal before mallet blows. The broach was seated to a few millimeters below the cut level based on the neck cut and the preoperative template. Sequential broaching was continued with the [employer] pneumatic broaching device until a tight fit was obtained with good rotational control of the femur. A trial high offset neck was inserted along with a +5 trial head. The leg was brought out of extension and adduction and then reduced with traction and internal rotation. The leg was stable anteriorly in a position of 30 degrees of extension and 90 degrees of external rotation. Fluoroscopy was used to ensure there was no fracture and the stem was seated well. Leg lengths were checked with an AP pelvis and pelvic reference points. [employer] navigat ion system was used to confirm appropriate positioning and leg length and offset. Once content with the desired offset and leg lengths, the leg was brought back into extension, external rotation and adduction. The periosteum and surrounding tissue was injected with remaining portion of the buck-articular cocktail. The proximal femur was irrigated as well as the deep tissues. The RedKixuy Actis high offset collared stem, size 4, was then manually inserted into the proximal femur making sure to control rotation. It was then malleted into position with light blows, giving breaks to allow bone expansion and decrease risk of fracture. The selected Depuy Altrx Ceramic Head, size 36+5mm, was then placed onto the clean and dry trunnion and secured with impaction onto the tapered fit. The leg was brought back out of extension and adduction and reduced with traction and internal rotation. Stability was confirmed with no shuck at 90 degrees of external rotation and 30 degrees of extension. No impingement through range of motion arc. Final x-ray images were obtained with fluoroscopy to confirm adequate positioning and no intraoperative fracture. The deep tissues were thoroughly irrigated with Surgiphor, betadine solution. This was allowed to sit in the wound for 3 minutes before being thoroughly irrigated out with normal saline. The capsule was then reapproximated with the previously placed Ethibond sutures. The TFL fascia was finally closed with a No. 2 Stratafix, barbed suture. Deep tissues were then reapproximated with 0 Vicryl and a running 2-0 Vicryl. The skin was closed with a running 4-0 Monocryl in a subcuticular fashion. This was reinforced with skin glue. A Mepilex silver dressing was applied. At the end of the case, all counts were correct. Eddie was transferred to the hospital bed without difficulty and suffering no apparent complication. Eddie has a good prognosis. Physical therapy will start today and without restrictions, weight-bearing as tolerated. Aspirin 81mg BID will be used for DVT prophylaxis.
--- NOTE | 2023-09-28 13:25 | W.ANESPOSTOP ---
Postoperative Evaluation Date, Time and Location Date Performed: 09/28/23 Time Performed: 13:26 Patient Location: Day Surgery Unit Vital Signs Most Recent Imported Vital Signs: Most Recent Vital Signs Temp Pulse Resp BP Pulse Ox 36.5 C 67 18 112/78 94 09/28/23 13:00 09/28/23 13:00 09/28/23 13:00 09/28/23 13:00 09/28/23 13:00 Pain Score Most Recent Pain Score: Most Recent Pain Score Pain Level 5 09/28/23 13:00 Assessment Mental Status: Awake (Alert & Oriented to Patient Baseline) Airway and Respiratory Function: Patent airway with normal (patient baseline) respiratory exam Cardiovascular Function: Hemodynamically Stable Hydration Status: Adequately Hydrated Nausea & Vomiting: No Nausea or Vomiting Pain: Pain is tolerable per patient Peripheral Nerve Block: Patient did not receive a nerve block
[2023-09-28] MEDS: oxyCODONE 5 MG TAB PO (13:52)
--- NOTE | 2023-09-28 15:18 | IN_ITS ---
Date of service: 09/28/23 Time of Service: 15:18 PT Notes Visit Reasons: Right hip DJD Physical Therapy Day Surgery Initial Evaluation Date: 09/28/2023 Referring Doctor: BEN Pina PT Orders: PT CONSULT: S/P Ortho Surgery Precautions: WBAT on the R Le with AD. Patient Profile/Admitting Diagnosis: Eddie is a 73-year-old male who has a degenerative joint disease of the right hip and status post right anterior total hip arthroplasty on postoperative day 0. PMHX: Medical History (Updated 09/16/23 @ 09:56 by Marcelle Delcid) Compound nevus of cheek COVID-19 GERD (gastroesophageal reflux disease) Osteoarthritis Hypercholesterolemia Hypertension Surgical History (Updated 09/16/23 @ 09:56 by Marcelle Delcid) History of bunionectomy of right great toe History of bunionectomy of left great toe S/P repair of hydrocele H/O knee surgery Left knee - chainsaw injury Social History/Home Situation: Lives alone in a private home with 3 steps to enter. [facility]ci staff at the [facility]. Equipment Owned/DME: FWW Subjective: Denies headache, chest pain, and lightheadedness throughout session. Urgently needed to use the bathroom with Nurse Gallagher when PT arrived. Objective: General Observation: Mepilex Ag over surgical incision. Attempting to void urine with assistance of nurse Gallagher upon arrival of PT. TEDS to be legs. Mental Status: Alert and oriented x4 Pain: 3/10 pain and the right hip with weightbearing ROM: Right Lower Extremity: Hip flexion WFL. Hip abduction WFL. Knee flexion WFL. Ankle dorsiflexion WFL. Ankle plantarflexion WFL. Left Lower Extremity: Hip flexion WFL. Hip abduction WFL. Knee flexion WFL. Ankle dorsiflexion WFL. Ankle plantarflexion WFL. Strength: Right Lower Extremity: Hip flexors 4-/5. Hip abductors 4-/5. Knee flexors 5/5. Knee extensors 4-/5. Ankle dorsiflexors 5/5. Ankle plantarflexors 5/5. Left Lower Extremity:Hip flexors 5/5. Hip abductors 5/5. Knee flexors 5/5. Knee extensors 5/5. Ankle dorsiflexors 5/5. Ankle plantarflexors 5/5. Sensation: Intact as to pain and light pressure in BLE Bed Mobility/Transfers: Bed to toilet seat stand by assist using FWW Gait: Facilitated safe and correct performance of level surface ambulation using front wheeled walker with covering a distance of 150 feet step through gait pattern and minimal verbal cueing for walker management, movement sequence, and posture . Stairs: Guided patient with safe and correct negotiation of 6 x 4 inch steps and 4 x 6 inch steps while holding onto bilateral rails with step to gait pattern requiring only standby assist with minimal verbal cueing provided for movement s equence and overall safety. Balance: Static Sitting: Normal Dynamic Sitting: Normal Static Standing: Fair Dynamic Standing: Fair Special Tests: Mobility Limitations Standardized Measure [facility] 6 clicks Basic Mobility Inpatient Short Form: Raw Score: 24 CMS Score: 11% deficit Informed Consent/Education: Patient instructed in purpose of PT consult. Packet containing JERRI exercise protocol has been given to patient. Education and training on initial set of exercises that can be done at home have been completed with patient. Trained patient with correct performance of exercises below to maximize motor control, joint flexibility, soft tissue extensibility of the R hip musculature to facilitate return to independent functional mobility performance. Access Code: [email or web address] URL: [email or web address] Date: 09/28/2023 Prepared by: Lashon Alvarado Exercises - Gluteal Sets - 1 x daily - 7 x weekly - 1 sets - 10 reps - 5 hold - Supine Heel Slide - 1 x daily - 7 x weekly - 1 sets - 10 reps - 5 hold - Supine Ankle Pumps - 1 x daily - 7 x weekly - 1 sets - 10 reps - 5 hold - Seated March - 1 x daily - 7 x weekly - 1 sets - 10 reps - 5 hold - Seated Long Arc Quad - 1 x daily - 7 x weekly - 1 sets - 10 reps - 5 hold Assessment: Patient requires the use of a front wheeled walker for all mobility ADL performance to maximize independence and reduce fall risk. Patient presents with clinical signs and symptoms consistent with current/admitting diagnoses that have resulted to mobility limitations, gait instability, generalized weakness, and impairment of motor control as demonstrated by the following impairment level findings: 1. Decreased strength to left hip major muscle groups 2. Impaired standing balance Impairments are contributing to the following functional limitations: 1. Inability to safely ambulate without assistive device 2. Increase completion time for mobility ADL performance 3. Increased fall risk Patient is assessed as a 61716 moderate complexity based on the following: History: 73-year-old female with impairment level findings, functional limitations, and past medical history as indicated above Examination: Demonstrable impairment in strength, balance, and mobility level with underlying impairments and functional limitations as documented above Presentation: Evolving Decision Makin moderate complexity Goals: N/A. PT evaluation and 1-2 treatment sessions only for functional mobility training using recommended AD and for HEP instruction. Plan of Care/Treatment Plan: N/A. PT evaluation and 1-2 treatment session only for functional mobility training using recommended AD and for HEP instruction. DISCHARGE RECOMMENDATIONS: Home when medically cleared by orthopedic surgeon. Recommend outpatient PT services in order to optimize functional mobility outcomes and facilitate return to independent community ambulation without an assistive device. TREATMENT CODE/TIME: 54447 x 24 minutes for 1 unit beginning at 15:18 PM. Thank you for the opportunity to participate in the care of this patient. Lashon Alvarado PT, DPT, CLT [facility] [place], [place]
== END 2023-09-28 16:00 | disposition home or self-care (01) ==
PROVIDERS: PCP Family Medicine; Visit Provider Student in an Organized Health Care Education/Training Program
PROC: (CPT 27130; principal; 2023-09-28 11:15)
DX: M16.11 Unilateral primary osteoarthritis, right hip (principal); I10 Essential (primary) hypertension; E78.00 Pure hypercholesterolemia, unspecified; K21.9 Gastro-esophageal reflux disease without esophagitis
CPT/HCPCS: 20985; 27130; C1776; 97162; 73501; J0690; J1100; J2001; J2250; J2405; J2704; J3010; J3490

== ENCOUNTER 2023-10-11 13:08 | Outpatient (CLI) | payer MEDICARE, SELFPAY ==
--- NOTE | 2023-10-11 09:30 | DI.RAD_ITS ---
Exam(s) XR HIP RT COMPLETE AP PELVIS EXAM: XR HIP RT COMPLETE AP PELVIS INDICATION: 1st post op R JERRI. COMPARISON: CR XR HIP RT COMPLETE AP PELVIS from 08/05/2023 XA XR HIP RT IN OR from 09/28/2023 TECHNIQUE: 2D digital imaging was performed. Two views. FINDINGS: There has been no change in the alignment of the right hip prosthesis. Abnormal surrounding bony edinson encies. Moderate degenerative changes noted in the left hip. DATA REPOSITORY: RADIATION DOSE DELIVERED:
== END 2023-10-11 13:09 | disposition home or self-care (01) ==
LOC: DIORS 13:08
PROVIDERS: PCP Family Medicine; Visit Provider Student in an Organized Health Care Education/Training Program
DX: Z96.641 Presence of right artificial hip joint (principal); Z47.1 Aftercare following joint replacement surgery
CPT/HCPCS: 73502

== ENCOUNTER → 2023-10-28 09:13 | Outpatient (BNVA) | payer MEDICARE, SELFPAY | PROVIDERS: PCP Family Medicine; Referring Provider Family Medicine; Visit Provider Student in an Organized Health Care Education/Training Program | DX: Z47.1 Aftercare following joint replacement surgery (principal); Z96.641 Presence of right artificial hip joint ==

== ENCOUNTER → 2023-11-08 09:24 | Outpatient (BNVA) | payer MEDICARE, SELFPAY | PROVIDERS: PCP Family Medicine; Referring Provider Family Medicine; Visit Provider Student in an Organized Health Care Education/Training Program | DX: Z47.1 Aftercare following joint replacement surgery (principal); Z96.641 Presence of right artificial hip joint ==

== ENCOUNTER → 2023-12-03 10:03 | Outpatient (BNVA) | payer MEDICARE, SELFPAY | PROVIDERS: PCP Family Medicine; Referring Provider Family Medicine; Visit Provider Student in an Organized Health Care Education/Training Program | DX: Z47.1 Aftercare following joint replacement surgery (principal); Z96.641 Presence of right artificial hip joint ==

== ENCOUNTER → 2024-06-05 09:37 | Outpatient (BNVA) | payer MEDICARE, SELFPAY | PROVIDERS: PCP Family Medicine; Referring Provider Family Medicine; Visit Provider Student in an Organized Health Care Education/Training Program | DX: Z47.1 Aftercare following joint replacement surgery (principal); Z96.641 Presence of right artificial hip joint | CPT/HCPCS: 99213 ==

== ENCOUNTER 2024-09-28 11:38 | Outpatient (CLI) | payer MEDICARE, SELFPAY ==
--- NOTE | 2024-09-28 10:15 | DI.RAD_ITS ---
Exam(s) XR HIP RT AP LAT ONLY EXAM: XR HIP RT AP LAT ONLY INDICATION: ANNUAL F/U R JERRI. COMPARISON: CR XR HIP RT COMPLETE AP PELVIS from 10/11/2023 TECHNIQUE: 2D digital imaging was performed. Two views. FINDINGS: Stable alignment right hip prosthesis. No abnormal surrounding lucencies. DATA REPOSITORY: RADIATION DOSE DELIVERED:
== END 2024-09-28 11:39 | disposition home or self-care (01) ==
LOC: DIORS 11:39
PROVIDERS: PCP Family Medicine; Visit Provider Student in an Organized Health Care Education/Training Program
DX: Z96.641 Presence of right artificial hip joint (principal); Z47.1 Aftercare following joint replacement surgery
CPT/HCPCS: 99213; 73502

== ENCOUNTER 2024-12-22 00:44 | Outpatient (CLI) | payer MEDICARE, SELFPAY ==
--- NOTE | 2024-12-22 | DI.RAD_ITS ---
Exam(s) XR SHOULDER RT COMPLETE 2+V EXAM: XR SHOULDER RT COMPLETE 2+V CLINICAL HISTORY: PAIN RT SHOULDER [id number]. TECHNIQUE: 2D digital imaging was performed. Five views. COMPARISON: No exams were available for comparison FINDINGS: BONES: No acute fracture is present. No bony destructive lesion is seen. Spurring and undersurface o f acromion. Minimal AC joint degenerative changes. Spurring at the glenoid. JOINTS: No dislocation present. SOFT TISSUE: Normal. IMPRESSION: Mild degenerative changes. DATA REPOSITORY: RADIATION DOSE DELIVERED:
--- OUTSIDE RECORDS SUMMARY | 2024-12-22 00:53 | XMS_ITS | Encounter Summary ---
Author Organization [facility] Address [address] [place] [address] Care Team Providers Care Housing Project Manager Name Role Phone Manuel Hardin MD Primary Care Provider [phone] Encounter Details Date Type Department Care Team (Late st Contact Info) Description 03/19/2021 Lab Requisition [facility] Pathology & Laboratory Medicine - [address] [id number] Outr Resulting Lab, Provider Social History Tobacco Use Types Packs/Day Years Used Date Smoking Tobacco: Never Assessed Interpersonal Safety Answer Date Record ed Physically Hurt Never 03/15/2021 Verbally Threaten Not on file 03/15/2021 Sex and Gender Information Value Date Recorded Sex Assigned at Not on file Legal Sex Male 11:05 EDT Gender Identity Not on file Sexual Orientation Not on file documented as of this encounter Plan of Treatment Not on file documented as of this encounter Procedures Procedure Name Priority Date/Time Associated Diagnosis Comments FECAL BACTERIAL PATHOGENS BY PCR Routine 03/18/2021 17:00 EDT documented in this encounter Results * FECAL BACTERIAL PATHOGENS BY PCR (03/18/2021 17:00 EDT) Salmonella PCR Negative Negative 03/19/2021 21:29 EDT [facility] Shigella/Enteroin vasive E. coli Negative Negative 03/19/2021 21:29 EDT [facility] HN LAB CAMPYLOBACTER PCR Negative Negative 03/19/2021 21:29 EDT [facility] Shiga Toxin PCR Negative Negative 21:29 EDT [facility] Feces SPECIMEN FROM RECTUM / Unknown Stool Collect / Unknown 03/18/2021 17:00 EDT 03/19/2021 17:18 EDT us Provider Outr Resulting Lab MICROBIOLOGY - GENER AL ORDERABLES Final Result Performing Organization Address City/State/[facility] [[email or web address]] Co de Phone Number [facility] [address] [place] [address] documented in this encounter Visit Diagnoses Not on filedocumented in this encounter Care Teams Housing Project Manager Relationship Specialty Start Date End Date Manuel Hardin MD [facility] [place] [address] PCP - General 03/29/22 documented as of this encounter
--- OUTSIDE RECORDS SUMMARY | 2024-12-22 00:53 | XMS_ITS | Encounter Summary ---
[place] [address] Care Team Providers Care Antisqueak Filler Name Role Phone Unavailable Primary Care Provider Unavailabl e Encounter Details Date Type Department Care Team (Latest Contact Info) Description 01/03/2024 Travel Social History Tobacco Use Types Packs/Day Years Used Date Smoking Tobacco: Never Assessed Sex and Gender Information Value Date Recorded Sex Assigned at Not on file Gender Identity Not on file Sexual Orientation Not on file documented as of this encounter Plan of Treatment Not on file documented as of this encounter Visit Diagnoses Not on filedocumented in this encounter
--- OUTSIDE RECORDS SUMMARY | 2024-12-22 00:53 | XMS_ITS | Encounter Summary ---
Author Organization [facility] Address [address] [place] [address] Care Team Providers Care Line Installer Trolley Name Role Phone Manuel Hardin MD Primary Care Provider [phone] Encounter Details Date Type Department Care Team (Late st Contact Info) Description 05/14/2022 Lab Requisition [facility] Pathology & Laboratory Medicine - [address] [address] Dmitriy Franco MD [address] [place] [id number] Encounter for other general examination Social History Tobacco Use Types Packs/Day Years [...] Procedure Name Priority Date/Time Associated Diagnosis Comments SURGICAL PATHOLOGY Today 05/14/2022 8: 30 EDT Encounter for other general examination documented in this encounter Results * SURGICAL PATHOLOGY (05/14/2022 8:30 EDT) Note to Patient The following pathology results have been interpreted by your pathologist and may be available to you before your health provider has had the opportunity to review them. Please allow time for your provider to receive these results and explore management options, if applicable. 05/18/2022 17:43 T [facility] Final Diagnosis A. SKIN OF CHEEK, RIGHT, EXCISION: - Compound nevus. 05/18/2022 17:43 [facility] Attestation By the signature below, the attending physician certifies that they have 1) personally conducted a gross and/or microscopic examination of the described specimen(s), and/or personally interpreted the results of laboratory testing of the described specimen(s), and 2) personally rendered or confirmed the above diagnosis. 05/18/2022 17:43 [facility] at 1743 Clinical History Skin lesion right cheek 05/18/2022 17:43 [facility] Gross Description A. Received in formalin labelled with proper patient identification (initials M, G) and R cheek is an unoriented elliptical excision of meyer-pink skin (1.1 x 0.6 cm and is excised to a depth of 0.4 cm). There is a central meyer-pink papule that measures 0.6 x 0.6 cm. The margins are inked blue. The specimen is serially sectioned and entirely submitted as A1 3 central sections and A2 2 tips, reverse en face. QASIM LUONGI 05/15/2022 11:33 05/18/2022 17:43 [facility] Performing Lab [facility] 05/18/2022 17:43 [facility] Scanned Images 05/18/2022 17:43 [facility] Tissue TISSUE SPECIMEN FROM SKIN / Unknown 05/14/2022 8:30 EDT 05/14/2022 23:37 EDT us Dmitriyjoe Franco MD PATHOLOGY ORDERABLES Final Resul t [facility] [address] [place] [address] documented in this encounter Visit Diagnoses Diagnosis Encounter for other general examination documented in this encounter Care Teams Line Installer Trolley Relationship Specialty Start Date End Date Manuel Hardin MD [address] [place] [address] PCP - General 03/29/22 documented as of this encounter
--- OUTSIDE RECORDS SUMMARY | 2024-12-22 00:53 | XMS_ITS | Encounter Summary ---
Author Organization [facility] Address [facility] [place] [address] Care Team Providers Care Mural Painter Name Role Phone Unavailable Primary Care Provider Unavailabl e Encounter Details Date Type Department Care Team (Late st Contact Info) Description 04/05/2024 11:15 AM EDT Office Visit Dermatology at [facility] [address] [place] [address] [facility] [address] [address] Seborrheic keratoses; Lentigines; Multiple benign nevi; Najera angioma; Xerosis of skin; Dermal nevus; Seborrheic dermatitis Social History Tobacco Use Types Packs/Day Years Used Date Smoking Tobacco: Never Assessed Sex and Gender Information Value Date Recorded Sex Assigned at Not on file Gender Identity Not on file Sexual Orientation Not on file documented as of this encounter Progress Notes * Mamie Pedroza MD - 04/05/2024 11:15 AM EDT Images from the original note were not included. DEPARTMENT OF DERMATOLOGY Medical Dermatology Clinic Provider: Mamie Pedroza MD Patient's preferred name Eddie Preferred contact method for results [x]Phone []myD-H []Letter Detailed phone message OK? y Are there any other people with whom we may discuss your care? 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 Patient returns to clinic today for Nghia derm follow-up and FSE. Using ketoconazole and head and shoulders. Feels like he needs to use it more. Did not start using tacrolimus. Last visit at Dermatology: 01/03/2024 Last visit with this provider: 01/03/2024 Medications: Reviewed in eD-H Allergies: Reviewed in eD-H Skin Examination: Full skin examination: Patient asked to undress to their comfort level. Verbalized that the provider???s preference is that the patient remove all clothing and that the provider will not examine areas patient elects to keep covered. Patient elects to keep underwear on and have the following examined: scalp, hair, face, ears, neck, chest, axillae, abdomen, back, and upper and lower extremities. Genitalia and buttocks were not examined. Assessment/Plan #. Seborrheic Dermatitis - Yellowish, greasy scale overlying erythematous patches on the eyebrows and arceo area. - Discussed etiology and treatment options. - Continue Rx ketoconazole 2% shampoo: Apply topically to affected area(s) on the face let sit for 3-5 minutes then rinse off. Alternate with home OTC anti dandruff shampoo, Patient reports that shampoo is working well. #. Xerosis - Diffuse xerotic, dry scale. - Recommended consistent use of a bland emollient/moisturizer, such as CeraVe Moisturizing Cream, daily and/or immediately after bathing to hydrate skin. #. Dermal Nevus - [place], fleshy papule on the right upper thigh. - Discussed benign nature and provided reassurance. - No treatment necessary at this time. #. Seborrheic Keratoses - Stuck on, waxy papules on the trunk and extremities. - Discussed benign nature of lesions and provided reassurance. No treatment necessary at this time. #. Benign Nevi - Scattered medium brown, evenly pigmented macules and papules on the trunk and extremities with reassuring pigment pattern on dermoscopy. - Discussed benign nature of lesions and provided reassurance. Will continue to monitor. #. Lentigines - Scattered light-brown, evenly pigmented, well-demarcated macules on sun-exposed areas of the trunk and extremities. - No worrisome pigmented lesions. Discussed benign nature of lesions and provided reassurance. Willcontinue to monitor. #. Najera Angiomas - Multiple bright red, well-demarcated papules on the trunk and extremities. - Discussed benign nature of lesions and provided reassurance. No treatment necessary at this time. Other: OTC skin products discussed RTC: 2 year for FSE // sooner if needed []Note routed to payroll secretary [x]Recall placed in scheduling system []Appointment scheduled at checkout Scribe attestation: Mattie Ruiz RN and Ashish Lam has performed the documentation for this encounter in the presence of and acting as a scribe for Mamie Pedroza MD. I performed the above scribed service and agree with the accuracy of the documentation in this encounter. Reviewed and signed by: Mamie Pedroza MD Dermatology [facility] documented in this encounter Plan of Treatment Not on file documented as of this encounter Visit Diagnoses Diagnosis Seborrheic keratoses Lentigines Other dyschromia Multiple benign nevi Benign neoplasm of skin, site unspecified Najera angioma Nevus, non-neoplastic Xerosis of skin Other specified disease of sebaceous glands Dermal nevus Benign neoplasm of skin, site unspecified Seborrheic dermatitis Seborrheic dermatitis, unspecified documented in this encounter
--- OUTSIDE RECORDS SUMMARY | 2024-12-22 00:53 | XMS_ITS | Encounter Summary ---
Author Organization [facility] Address [address] [place] [address] Care Team Providers Care Clinical Staff Pharmacist Name Role Phone Manuel Hardin MD Primary Care Provider Encounter Details Date Type Department Care Team (Late st Contact Info) Description 03/14/2021 Lab Requisition [facility] Pathology & Laboratory Medicine - [address] [id number] Outr Resulting Lab, Provider Social History Tobacco [...] Procedure Name Priority Date/Time Associated Diagnosis Comments ZZCOVID-19 TEST [facility] PCR Today 03/13/2021 8:30 EDT COVID-19 TESTING Routine 03/13/2021 8:30 EDT documented in this encounter Results * COVID-19 TEST [facility] PCR (03/13/2021 8:30 EDT) Swab ENTIRE NASOPHARYNX / Unknown 03/13/2021 8:30 EDT 03/14/2021 16:00 EDT us Provider Outr Resulting Lab MICROBIOLOGY - GENER AL ORDERABLES Final Result Performing Organization Address [facility]/ZIP Co de Phone Number [facility] [address] [place] [address] * COVID-19 TESTING (03/13/2021 8:30 EDT) COVID-19 rt-PCR Result Negative Negative 03/15/2021 14:58 EDT [facility] Comment: This test has not been FDA cleared or approved. This test has been authorized by FDA under an EUA for use by authorized laboratories. This test has been authorized only for detection of nucleic acid from 2019-nCoV, not for any other viruses or pathogens. This test is only authorized for the duration of the declaration that circumstances exist justifying the authorization of emergency use of in vitro diagnostic tests for detection and/or diagnosis of 2019-nCoV under section 564(b)(1) of Act, 21 U.S.C ?? 360bbb-3(b) (1), unless the authorization is terminated or revoked sooner. Negative results do not preclude 2019-nCoV infection and should not be used as the sole basis for treatment or other patient management decisions. Negative results must be combined with clinical observations, patient history, and epidemiological information. Testing was performed using the misael SARS-CoV-2 assay ([employer] on the Misael 6800 System Performing Lab Misael 6800 [employer] Lab 03/15/2021 14:58 EDT [facility] Swab 03/13/2021 8:30 EDT 03/14/2021 16:00 EDT us Provider Outr Resulting Lab MICROBIOLOGY - GENER AL ORDERABLES Final Result Performing Organization Address [facility]/ZIP Co de Phone Number [facility] [address] [place] [address] documented in this encounter Visit Diagnoses Not on filedocumented in this encounter Care Teams Clinical Staff Pharmacist Relationship Specialty Start Date End Date Manuel Hard[place] [address] PCP - General 5/1/22 documented as of this encounter
--- OUTSIDE RECORDS SUMMARY | 2024-12-22 00:53 | XMS_ITS | Encounter Summary ---
Author Organization [facility] Address [address] [place] [address] Care Team Providers Care Law Secretary Name Role Phone Manuel Hardin MD Primary Care Provider [phone] Encounter Details Date Type Department Care Team (Late st Contact Info) Description 06/28/2023 Lab Requisition [facility] Pathology & Laboratory Medicine - [address] [address] Outr Resulting Lab, Provider Social History Tobacco [...] Procedure Name Priority Date/Time Associated Diagnosis Comments LYME AB Routine 06/28/2023 10:00 EDT documented in this encounter Results * LYME AB (06/28/2023 10:00 EDT) Lyme Ab Negative Negative 06/29/2023 9:48 EDT [facility] Blood VENOUS BLOOD / Unknown 06/28/2023 10:00 EDT 06/28/2023 21:24 EDT us Provider Outr Resulting Lab IMMUNOLOGY AND SEROL OGY ORDERABLES Final Result [facility] [address] [place] [address] documented in this encounter Visit Diagnoses Not on filedocumented in this encounter Care Teams Law Secretary Relationship Specialty Start Date End Date Manuel Hardin MD [address] [place] [address] PCP - General 03/29/22 documented as of this encounter
--- OUTSIDE RECORDS SUMMARY | 2024-12-22 00:53 | XMS_ITS | Referral Summary ---
Author Organization [facility] Address [address] [place] [address] Care Team Providers Care Percussion Instructor Name Role Phone Manuel Hardin MD Primary Care Provider [phone] Social History Tobacco Use Types Packs/Day Years Used Date Smoking Tobacco: Never Assessed Interpersonal Safety Answer Date Record ed Physically Hurt Never 03/15/2021 Verbally Threaten Not on file 03/15/2021 Sex and Gender Information Value Date Recorded Sex Assigned at Not on file Legal Sex Male 11:05 EDT Gender Identity Not on file Sexual Orientation Not on file Plan of Treatment Not on file Insurance MEDICARE [employer] [place] Care Teams Percussion Instructor Relationship Specialty Start Date End Date Manuel Hardin MD [address] [place] [address] PCP - General 03/29/22
--- OUTSIDE RECORDS SUMMARY | 2024-12-22 00:53 | XMS_ITS | Clinical Summary ---
Author Organization [facility] Address [address] [place] [address] Care Team Providers Care Retail Customer Service Representative Name Role Phone Manuel Hardin MD Primary Care Provider [phone] Social History Tobacco Use Types Packs/Day Years Used Date Smoking Tobacco: Never Assessed Interpersonal Safety Answer Date Record ed Physically Hurt Never 03/15/2021 Verbally Threaten Not on file 03/15/2021 Sex and Gender Information Value Date Recorded Sex Assigned at Not on file Legal Sex Male 11:05 EDT Gender Identity Not on file Sexual Orientation Not on file Plan of Treatment Health Maintenance Due Date Last Done Comments Hepatitis C Screen 1950 Fall Risk Screening 2015 COVID-19 Vaccine (2023- season) 2024 RSV Immunization ( o r 60+ Years) (1 - 1-dose 75+ series) 2025 Insurance MEDICARE [employer] [place] Care Teams Retail Customer Service Representative Relationship Specialty Start Date End Date Manuel Hardin MD [facility] [place] [address] [place] [address] PCP - General 03/29/22
--- OUTSIDE RECORDS SUMMARY | 2024-12-22 00:53 | XMS_ITS | Encounter Summary ---
Author Organization [facility] Address [facility] [place] [address] Care Team Providers Care Counter Waiter Name Role Phone Unavailable Primary Care Provider Unavailabl e Encounter Details Date Type Department Care Team (Late st Contact Info) Description 01/03/2024 10:30 AM EST Office Visit Dermatology at [facility] [address] [place] [address] Mamie Pedroza MD [facility] [address] [address] Seborrheic dermatitis; Xerosis cutis Social History Tobacco Use Types Packs/Day Years Used Date Smoking Tobacco: Never Assessed Sex and Gender Information Value Date Recorded Sex Assigned at Not on file Gender Identity Not on file Sexual Orientation Not on file documented as of this encounter Progress Notes * Mamie Pedroza MD - 01/03/2024 10:30 AM EST Images from the original note were not included. DEPARTMENT OF DERMATOLOGY [facility] D[facility]at[facility] Provider: Mamie Pedroza MD Patient's preferred name Eddie Preferred contact method for results [x]Phone []myD-H []Letter Detailed phone message OK? Are there any other people with whom we may discuss your care? 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 Patient is new and self- referred to the clinic for breakouts on the face. Used to have some breakouts on the face when he was a kid but is worse now. No known triggers for the breaking out. Describes that he has very dry skin is washing face with baby shampoo, no other treatment. Has been present for years. Rash/breakouts present on the cheeks, jaw, and eyebrows. Patient reports that the rash can be itchy. Medications: Reviewed in eD-H Allergies: Reviewed in eD-H Skin Examination: Focused skin examination of the face was normal with the exception of the findings below. Assessment/Plan #. Seborrheic Dermatitis - Yellowish, greasy scale overlying erythematous patches on the eyebrows and arceo area. - Discussed etiology and treatment options. - Start Rx ketoconazole 2% shampoo: Apply topically to affected area(s) on the face let sit for 3-5minutes then rinse off. Alternate with home OTC anti dandruff shampoo - Start Rx tacrolimus (Protopic) 0.1% ointment: Apply topically to affected areas on the face twicedaily as needed. - Counseled possible burning or stinging with initial application. X. Xerosis - Diffuse xerotic, dry scale on feet per patient . - Recommended consistent use of a bland emollient/moisturizer, such as CeraVe Moisturizing Cream, daily and/or immediately after bathing to hydrate skin. - May also try dilute vinegar spritzes (1 part vinegar, 6 parts water) 1-2x daily or an acidified moisturizer, such as CeraVe SA cream or Amlactin lotion. - If pruritic, may use Sarna lotion as needed. - Start Rx Urea 40% Cream: Apply topically to affected areas on the feet daily as needed. #Benign nevus- Brown macule on left upper chest -Reassured benign, CTM for any changes #Skin tags- Per patient, no exam today -Patient would like removal. Briefly discussed cosmetic fee, 1-10 $100 Figure 1 Figure 2 Photo(s) taken and charted with patient's verbal consent. Other: OTC skin products discussed RTC: 8-12 weeks for [facility] derm/FSE Follow up []Note routed to company secretary []Recall placed in scheduling system [x]Appointment scheduled at checkout Scribe attestation: HANY Barr has performed the documentation for this encounter in thepresence of and acting as a scribe for Mamie Pedroza MD. I performed the above scribed service and agree with the accuracy of the documentation in this encounter. Reviewed and signed by: Mamie Pedroza MD Dermatology [facility] documented in this encounter Plan of Treatment Not on file documented as of this encounter Visit Diagnoses Diagnosis Seborrheic dermatitis Seborrheic dermatitis, unspecified Xerosis cutis Other specified disease of sebaceous glands documented in this encounter
--- OUTSIDE RECORDS SUMMARY | 2024-12-22 00:53 | XMS_ITS | Clinical Summary ---
Author Organization [facility] Address [facility] [place] [address] Care Team Providers Care Brand Ambassador Name Role Phone Unavailable Primary Care Provider Unavailabl e Allergies Active Allergy Reactions Criticality Noted Date Comments Penicillins 04/05/2024 From childhood Medications Medication Sig Dispensed Refills Start Date End Date Status ketoconazole (NIZORAL) 2 % ShampooIndications:S eborrheic dermatitis Apply topically to affected area(s) on the face let sit for 3-5 minutes then rinse off. Alternate with home OTC anti dandruff shampoo 120 mL 3 01/03/2024 Active tacrolimus (Protopic) 0.1 % OintmentIndications: Seborrheic dermatitis Apply topically to affected areas on the face twice daily as needed 30 g 3 01/03/2024 Active Additional Information Patient not taking.Reported on 04/05/2024 urea (VALDO LO) 40 % CreamIndications:Xer osis cutis Apply topically daily to affected area on feet 28.35 g 3 01/03/2024 Active amLODIPine (Norvasc) 5 mg tablet Take 1 tablet by mouth Daily at Noon. 02/14/2024 Active atorvastatin (Lipitor) 40 mg tablet Take 40 mg by mouth nightly. 02/14/2024 Active lisinopriL-hydroCHLO ROthiazide (Zestoretic) 20-12.5 mg tablet Take 1 tablet by mouth every morning. 03/17/2024 Active Active Problems No known active problems Social History Tobacco Use Types Packs/Day Years Used Date Smoking Tobacco: Never Assessed Sex and Gender Information Value Date Recorded Sex Assigned at Not on file Gender Identity Not on file Sexual Orientation Not on file Plan of Treatment Health Maintenance Due Date Last Done Comments CT Colonography 1950 Colonoscopy 1950 Colorectal Cancer Screening 1950 FIT DNA 1950 FIT 1950 Sigmoidoscopy (10 year) with FIT yearly 1950 Sigmoidoscopy 1950 Hepatitis C Screening 1968 Tetanus/Diphtheria/Pertussis Vaccines (1 - Tdap) 05/21 Pneumoccocal Vaccine: 50+ (1 of 1 - PCV) 2000 Zoster vaccine (1 of 2) 2000 Advance Directive 2005 Covid-19 Vaccine (1 - 2023- season) 2024 Influenza (Flu) vaccine (1 o f 1 - Influenza standard series) 07/30/2024
--- OUTSIDE RECORDS SUMMARY | 2024-12-22 00:53 | XMS_ITS | Encounter Summary ---
Author Organization [facility] Address [address] [place] [address] Care Team Providers Care Editor Newspaper Name Role Phone Manuel Hardin MD Primary Care Provider [phone] Encounter Details Date Type Department Care Team (Late st Contact Info) Description 04/23/2021 Lab Requisition [facility] Pathology & Laboratory Medicine - [address] [id number] Outr Resulting Lab, Provider Social History Tobacco [...] Comments ZZCOVID-19 TEST [facility] PCR Today 04/22/2021 12:40 EDT COVID-19 TESTING Routine 04/22/2021 12:4 0 EDT documented in this encounter Results * COVID-19 TEST [facility] PCR (04/22/2021 12:40 EDT) Swab ENTIRE NASOPHARYNX / Unknown 04/22/2021 12:40 EDT 04/23/2021 16:34 EDT us Provider Outr Resulting Lab MICROBIOLOGY - GENER AL ORDERABLES Final Result [facility] [address] [place] [address] * COVID-19 TESTING (04/22/2021 12:40 EDT) COVID-19 rt-PCR Result Negative Negative 04/24/2021 15:22 EDT [facility] Comment: This test has not [...] clinical observations, patient history, and epidemiological information. This test was developed and its performance characteristics determined by [facility]. It has not been cleared or approved by the US Food and Drug Administration. FDA does not require this test to go through premarket FDA review. This test is used for clinical purposes. It should not be regarded as investigational or for research. This laboratory is certified under the Clinical Laboratory Improvement Amendments (CLIA) as qualified to perform high complexity clinical laboratory testing. This test is based on the [facility] COVID-19 Emergency Use Authorization (EUA) assay, with minor modification as defined by the FDA Performed on the Urgent.ly 7 Pro RT-PCR System. Performing Lab [facility] Lab 04/24/2021 15:22 EDT [facility] Swab 04/22/2021 12:4 0 EDT 04/23/2021 16:34 EDT us Provider Outr Resulting Lab MICROBIOLOGY - GENER AL ORDERABLES Final Result [facility] [address] [place] [address] documented in this encounter Visit Diagnoses Not on filedocumented in this encounter Care Teams Editor Newspaper Relationship Specialty Start Date End Date Manuel Hardin MD [address] [place] [address] PCP - General 03/29/22 documented as of this encounter
--- OUTSIDE RECORDS SUMMARY | 2024-12-22 00:53 | XMS_ITS | Encounter Summary ---
[place] [address] Care Team Providers Care Manager Shift Name Role Phone Unavailable Primary Care Provider Unavailabl e Encounter Details Date Type Department Care Team (Latest Contact Info) Description 04/05/2024 Travel Social History Tobacco Use Types Packs/Day [...]
== END 2024-12-22 01:04 ==
LOC: DI 00:45
PROVIDERS: PCP Family Medicine; Visit Provider Family Medicine
DX: M25.511 Pain in right shoulder (principal)
CPT/HCPCS: 73030

== ENCOUNTER → 2025-02-15 13:46 | Outpatient (BNVA) | payer MEDICARE, SELFPAY | PROVIDERS: PCP Family Medicine; Referring Provider Family Medicine; Visit Provider Student in an Organized Health Care Education/Training Program | DX: M65.342 Trigger finger, left ring finger (principal) | CPT/HCPCS: 20600; J1010 ==

== ENCOUNTER → 2025-03-14 13:42 | Outpatient (BNVA) | payer MEDICARE, SELFPAY | PROVIDERS: PCP Family Medicine; Referring Provider Family Medicine; Visit Provider Student in an Organized Health Care Education/Training Program | DX: M75.81 Other shoulder lesions, right shoulder (principal); M19.011 Primary osteoarthritis, right shoulder | CPT/HCPCS: 99214 ==

== ENCOUNTER 2025-04-03 13:01 | Outpatient (REF) | payer MEDICARE, SELFPAY ==
[2025-04-03 15:09] LABS: HCT 43.8 % (40.0-50.0); HGB 15.1 g/dL (13.5-17.5); MCH 30.8 pg (27.0-33.0); MCHC 34.5 % (32.0-36.0); MCV 89 fL (80-95); MPV 9.7 fL (8.0-11.0); Platelet Count 214 10^3/uL (130-400); RDW 13.2 % (11.8-14.1); RDW-SD 42.9 fL; WBC 7.88 10^3/uL (4.4-10.8)
[2025-04-03 15:49] LABS: ALT 36 U/L (16-63); AST 30 U/L (15-37); Albumin 3.9 g/dL (3.4-5.0); Alkaline Phosphatase 113 U/L (46-116); Anion Gap 6.3 mmol/L (3-11); BUN 21 mg/dL (7-18); Bilirubin, Total 0.7 mg/dL (0.2-1.0); CO2 30.7 mmol/L (21.0-32.0); CREATININE 0.9 mg/dL (0.70-1.30); Calcium 9.6 mg/dL (8.5-10.1); Chloride 104 mmol/L (98-107); Cholesterol 193 mg/dL (<200); Estimated GFR 89.62 (mL/min/1.73m2); Glucose 109 mg/dL (74-106); Potassium 4.2 mmol/L (3.5-5.1); Sodium 141 mmol/L (136-145); Total Protein 7.3 g/dL (6.4-8.2); Triglyceride 124 mg/dL (<150)
[2025-04-03 17:35] LABS: Calculated LDL 128 mg/dL (<100); HDL Cholesterol 41 mg/dL (>or=40)
== END 2025-04-03 13:02 | disposition home or self-care (01) ==
LOC: NCHCN 13:01
PROVIDERS: PCP Family Medicine; Visit Provider Family Medicine
DX: I10 Essential (primary) hypertension (principal); Z00.00 Encounter for general adult medical examination without abnormal findings; E78.5 Hyperlipidemia, unspecified
CPT/HCPCS: 80053; 80061; 85027

== ENCOUNTER → 2025-04-13 08:57 | Outpatient (BNVA) | payer MEDICARE, SELFPAY | PROVIDERS: PCP Family Medicine; Referring Provider Family Medicine; Visit Provider Physician Assistant | DX: M75.81 Other shoulder lesions, right shoulder (principal) | CPT/HCPCS: 20610; J1010 ==

== ENCOUNTER 2025-05-08 14:16 | Outpatient (CLI) | payer MEDICARE, SELFPAY ==
--- NOTE | 2025-05-08 13:34 | DI.RAD_ITS ---
Exam(s) XR CHEST 2V PA LATERAL EXAM: XR CHEST 2V PA LATERAL CLINICAL HISTORY: R50.9 Fever,unspecified TECHNIQUE: 2D digital imaging was performed of the chest. Two images were obtained. PA and lateral views were obtained. COMPARISON: CR,XR XR RIBS LT W PA LAT CHEST from 09/26/2022 FINDINGS: MEDIASTINUM: Normal. HEART: Normal. PULMONARY VASCULATURE: Normal. LUNGS: No focal consolidating infiltrates are present. PLEURAL SPACE: No pleural effusion or pneumothorax. BONE:Within normal limits for the patient's age. OTHER FINDINGS:Normal. IMPRESSION: No acute pulmonary findings. DATA REPOSITORY: RADIATION DOSE DELIVERED:
== END 2025-05-08 14:36 ==
LOC: DI 14:17
PROVIDERS: PCP Family Medicine; Visit Provider Family Medicine
DX: R50.9 Fever, unspecified (principal)
CPT/HCPCS: 71046

== ENCOUNTER 2025-05-08 18:14 | Outpatient (REF) | payer MEDICARE, SELFPAY ==
[2025-05-08 15:44] LABS: Abs Immature Grans 0.02 10^3/uL (0.0-0.06); Absolute Basophil Count 0.05 10^3/uL (0.0-0.2); Absolute Eosinophil Count 0.27 10^3/uL (0.0-0.7); Absolute Lymphocyte Count 2.01 10^3/uL (1.2-3.4); Absolute Monocyte Count 0.57 10^3/uL (0.1-0.8); Absolute Neutrophil Count 3.47 10^3/uL (1.2-6.7); Basophils % 0.8 %; Eosinophils % 4.2 %; HCT 48.6 % (40.0-50.0); HGB 16.4 g/dL (13.5-17.5); Immature Grans % 0.3 %; Lymphocytes % 31.5 %; MCH 30.8 pg (27.0-33.0); MCHC 33.7 % (32.0-36.0); MCV 91 fL (80-95); MPV 9.8 fL (8.0-11.0); Monocytes % 8.9 %; Neutrophils % 54.3 %; Platelet Count 201 10^3/uL (130-400); RBC 5.33 10^6/uL (4.36-5.78); RDW 13.4 % (11.8-14.1); WBC 6.39 10^3/uL (4.4-10.8)
[2025-05-08 16:27] LABS: ALT 32 U/L (16-63); AST 20 U/L (15-37); Albumin 3.8 g/dL (3.4-5.0); Alkaline Phosphatase 126 U/L (46-116); Anion Gap 7.2 mmol/L (3-11); BUN 15 mg/dL (7-18); CO2 30.8 mmol/L (21.0-32.0); Calcium 9.3 mg/dL (8.5-10.1); Chloride 102 mmol/L (98-107); Estimated GFR 78.98 (mL/min/1.73m2); Glucose 128 mg/dL (74-106); Potassium 3.7 mmol/L (3.5-5.1); Sodium 140 mmol/L (136-145); Total Protein 7.4 g/dL (6.4-8.2)
[2025-05-08 18:06] LABS: Bilirubin, Total 0.9 mg/dL (0.2-1.0)
== END 2025-05-08 18:15 | disposition home or self-care (01) ==
LOC: NCHCN 18:14
PROVIDERS: PCP Family Medicine; Visit Provider Family Medicine
DX: R50.9 Fever, unspecified (principal)
CPT/HCPCS: 80053; 85025

== ENCOUNTER 2025-07-09 18:12 | Outpatient (REF) | payer MEDICARE, SELFPAY ==
[2025-07-09 15:15] LABS: Glucose Negative (Negative)
== END 2025-07-09 18:13 | disposition home or self-care (01) ==
LOC: NCHCN 18:12
PROVIDERS: PCP Family Medicine; Visit Provider Family Medicine
DX: R30.0 Dysuria (principal)
CPT/HCPCS: 81003